=== PATIENT | female | born 1960 | race Caucasian/White ===

== ENCOUNTER 2018-10-02 11:49 | Outpatient (CLI) | payer OTHER, SELFPAY ==
[2018-10-02 12:15] LABS: Mono Screening Negative (Negative)
== END 2018-10-02 12:09 ==
PROVIDERS: PCP General Practice; Visit Provider General Practice
DX: J02.9 Acute pharyngitis, unspecified (principal)
CPT/HCPCS: 36415; 86308

== ENCOUNTER 2018-10-02 11:51 | Outpatient (REF) | payer OTHER, SELFPAY | END 2018-10-02 12:11 | LOC: LBN 11:51 | PROVIDERS: PCP General Practice; Visit Provider General Practice | DX: J02.9 Acute pharyngitis, unspecified (principal) | CPT/HCPCS: 87081 ==

== ENCOUNTER 2018-10-24 15:40 | Outpatient (REF) | payer OTHER, SELFPAY ==
--- NOTE | 2018-10-24 15:00 | PAPFT_PTH ---
PATIENT: Racquel Lares LOC: [facility] U#:[id number] AGE/SX: 57/F ROOM: RE10/24/[address]: Tesha Rossi NP : 1960 BED: DIS: 10/24/2018 SPEC #: [id number] RECD: 10/24/18 17:48 STATUS: MERARI FRAGA #: [id number] VICKY: 10/24/18 15:[address]: Tesha Rossi NP DEPT: [facility] Cytology RECD BY: Arnaud,Racquel ENTERED: 10/24/18 17:48 SP TYPE: PAPFT OTHR DR: Odilon Russ Tissues: 1 - CX/ENDOCX FOR PAP SMEARS Procedures: PAP THIN PREP/UVM Screening HPV DNA PROBE Comments: [id number]
[2018-10-24 16:05] LABS: Bilirubin Negative (Negative); Blood Trace-intact (Negative); Clarity Clear (Clear); Glucose Negative (Negative); Ketones Negative (Negative); Leukocyte Esterase Trace (Negative); Nitrite Negative (Negative); Specific Gravity 1.015 (1.005-1.025); Urobilinogen 0.2 EU/dL (Up TO 0.2)
[2018-10-24 16:27] LABS: Epithelial Cells Moderate HPF (Negative); RBC 0-2 (0-2)
[2018-10-24 16:28] LABS: Bacteria Rare HPF (Negative); C & S Indicated? C&S Done As Ordered; Crystals Negative HPF (Negative); Mucus Negative (Negative)
== END 2018-10-24 16:00 ==
LOC: LBN 15:40
PROVIDERS: PCP General Practice; Visit Provider Nurse Practitioner Women's Health
DX: R30.0 Dysuria (principal); N89.8 Other specified noninflammatory disorders of vagina; Z12.4 Encounter for screening for malignant neoplasm of cervix; Z11.51 Encounter for screening for human papillomavirus (HPV)
CPT/HCPCS: 87077; 88142; 81003; 81015; 87086; 87186; 87624

== ENCOUNTER 2018-11-12 16:37 | Outpatient (REF) | payer OTHER, SELFPAY ==
--- NOTE | 2018-11-12 16:05 | ENDO_PTH ---
PATIENT: Racquel Lares LOC: [facility] U#:[id number] AGE/SX: 57/F ROOM: RE11/12/[address]: Maxwell Mora MD : 1960 BED: DIS: 11/12/2018 SPEC #: [id number] RECD: 11/12/18 17:13 STATUS: MERARI REQ #: [id number] VICKY: 11/12/18 16:[address]: Maxwell Mora DEPT: Surgical Specimen RECD BY: Racquel Lares ENTERED: 11/12/18 17:13 SP TYPE: Endo OTHR DR: Odilon Russ NP Tissues: 1 - ENDOCERVICAL BX/CURRETTE Procedures: GROSS AND MICRO LEVEL 4 Comments: [id number] (INSUFFIENT SAMPLE - CREDITED PER [facility])
== END 2018-11-12 16:57 ==
LOC: LBN 16:37
PROVIDERS: PCP General Practice; Visit Provider Obstetrics & Gynecology
DX: R87.612 Low grade squamous intraepithelial lesion on cytologic smear of cervix (LGSIL) (principal); R87.820 Cervical low risk human papillomavirus (HPV) DNA test positive; Z78.0 Asymptomatic menopausal state
CPT/HCPCS: 88305

== ENCOUNTER 2018-11-27 15:02 | Outpatient (REF) | payer OTHER, SELFPAY ==
--- NOTE | 2018-11-27 14:40 | ENDO_PTH ---
PATIENT: Racquel Lares LOC: [facility] U#:[id number] AGE/SX: 57/F ROOM: RE11/27/[address]: Maxwell Mora MD : 1960 BED: DIS: 11/27/2018 SPEC #: [id number] RECD: 11/27/18 17:28 STATUS: MERARI REQ #: [id number] VICKY: 11/27/18 14:[address]: Maxwell Mora DEPT: Surgical Specimen RECD BY: Racquel Lares ENTERED: 11/27/18 17:29 SP TYPE: Endo OTHR DR: Odilon Russ Tissues: 1 - ENDOCERVICAL BX/CURRETTE Procedures: GROSS AND MICRO LEVEL 4 Comments: [id number]
== END 2018-11-27 15:22 ==
LOC: LBN 15:02
PROVIDERS: PCP General Practice; Visit Provider Obstetrics & Gynecology
DX: R87.612 Low grade squamous intraepithelial lesion on cytologic smear of cervix (LGSIL) (principal)
CPT/HCPCS: 88305

== ENCOUNTER 2019-01-09 09:05 | Outpatient (CLI) | payer OTHER, SELFPAY ==
--- NOTE | 2019-01-09 16:15 | DI.MAMMO_ITS ---
SYMPTOM/DIAGNOSIS: SCREENING Z12.31 MAMMOGRAM: 01/09 Mammograms were interpreted according to the usual protocol including computer analysis with CAD system, tomosynthesis and C view imaging. The breasts are heterogeneously dense. No dominant mass or clumped microcalcification is identified in either breast. The current examination is compared with previous examinations including Jun 2017 and there is question of increased radiodensity with a vaguely nodular appearance in the upper outer quadrant of the left breast seen on MLO and CC views. Additional mammographic views of this area requested to rule out a mass. No other change seen. CONCLUSION: Additional mammographic views of the left breast requested as described above. Category 0, breast density category C. MQSA ASSESSMENT OF FINDINGS: Incomplete: Needs additional imaging evaluation. Category 0. Patient will receive a letter notifying them of these results. Bi-RADS category C. The breasts are heterogeneously dense, which may obscure small masses.
== END 2019-01-09 09:25 ==
PROVIDERS: PCP General Practice; Visit Provider Obstetrics & Gynecology
DX: Z12.31 Encounter for screening mammogram for malignant neoplasm of breast (principal); R92.8 Other abnormal and inconclusive findings on diagnostic imaging of breast
CPT/HCPCS: 77063; 77067

== ENCOUNTER 2019-01-15 00:50 | Outpatient (CLI) | payer OTHER, SELFPAY ==
--- NOTE | 2019-01-15 10:49 | DI.MAMMO_ITS ---
EXAM: US BREAST LT LIMITED CLINICAL HISTORY: F/U MAMMO ?INCREASED RADIODENSITY WITH A VAGUELY NODULAR APPEARANCE IN THE. TECHNIQUE: Ultrasound performed using standard protocol. COMPARISON: No exams were available for comparison FINDINGS: Ultrasound was performed to evaluate area of asymmetric radiodensity seen on recent mammogram in the left breast. No mass or cyst identified. Additional mammographic views left breast were obtained to evaluate a questionable area of asymmetric density seen on recent mammogram. Additional views fail to show a discrete mass. IMPRESSION: Negative left breast ultrasound. No specific evidence of malignancy at this time. Follow up unilateral left breast mammogram recommend ed in 6 months. Category 3. Breast density, Category C.
== END 2019-01-15 01:10 ==
PROVIDERS: PCP General Practice; Visit Provider Obstetrics & Gynecology
DX: Z12.31 Encounter for screening mammogram for malignant neoplasm of breast (principal); R92.8 Other abnormal and inconclusive findings on diagnostic imaging of breast; N64.59 Other signs and symptoms in breast
CPT/HCPCS: 76642; 77063; 77067

== ENCOUNTER 2019-07-03 01:25 | Outpatient (CLI) | payer OTHER, SELFPAY ==
--- NOTE | 2019-07-03 15:07 | DI.MAMMO_ITS ---
EXAM: MG MAMMO DIAGNOSTIC UNI CLINICAL HISTORY: 6 MO F/U, F/U ABNL LT BREAST,R92.8 COMPARISON: Priors available for comparison. TECHNIQUE: Craniocaudal and mediolateral oblique Full Field Digital Mammography views of the left b reast with Computer Aided Diagnosis. FINDINGS: Mammography/Tomosynthesis: Masses/Architectural Distortion: None seen. Microcalcifictions: No suspicious pleomorphic-type are seen. Skin Thickening/Nipple Retraction: None. IMPRESSION: 1. No evidence of malignancy is noted. 2. Unless there is more urgent need, patient should resume screening mammography in 6 months, as per [place] [employer] guidelines. ACR BI-RAD Category- 1 Negative Breast Density - Category C - Heterogeneously dense The mammogram demonstrates the patient's breast tissue is dense. Dense breast tissue is very common a nd is not abnormal but dense breast tissue can make it harder to find cancer on a mammogram. Also, de nse breast tissue may increase their breast cancer risk. This information about the result of the [facility] mogram report was provided to the patient to raise their awareness. Use this report when you speak wi th the patient about their risks for breast cancer, which includes their family history. At that time , you may recommend for more screening tests (Ultrasound or MRI) as they might be useful based on the ir risk. A negative radiographic report should not delay biopsy if a dominant or clinically suspicious mass is present. Up to ten percent of cancers are not identified on mammography. A negative report may reinforce clinical impression. Adenosis and dense breasts may obscure an underlying neoplasm. False positive reports average 6 to 10%. Patient will receive a letter notifying them of these results.
== END 2019-07-03 01:45 ==
PROVIDERS: PCP General Practice; Visit Provider Obstetrics & Gynecology
DX: Z12.31 Encounter for screening mammogram for malignant neoplasm of breast (principal); R92.8 Other abnormal and inconclusive findings on diagnostic imaging of breast; N64.59 Other signs and symptoms in breast
CPT/HCPCS: 77061; 77065; G0279

== ENCOUNTER 2020-01-13 01:17 | Outpatient (CLI) | payer OTHER, SELFPAY ==
--- NOTE | 2020-01-13 07:45 | DI.MAMMO_ITS ---
EXAM: MAMMO SCREENING CLINICAL HISTORY: screening.Z12.39 TECHNIQUE: Mammograms were interpreted according to the usual protocol including computer analysis w [employer] CAD system, tomosynthesis and C-view imaging. COMPARISON: FINDINGS: The breasts are heterogeneously dense. No dominant mass or clumped microcalcification is identified in either breast. The current examination is compared with previous examinations including June and there is question of interval increase in prominence of a focal area of asymmetric density proj ected posteriorly and centrally in the left breast on MLO view. Additional mammographic views of thi s area are requested to include an MLO spot compression view of the left breast. No other significan t change seen. IMPRESSION: Additional mammographic views of the left breast requested as described above. Breast ultrasound may be indicated as well depending on the results of the additional mammographic views. BI-RADS Cat 0 - Assessment Incomplete: Need additional imaging evaluation Breast Density - Category C - Heterogeneously dense
== END 2020-01-13 01:37 ==
PROVIDERS: PCP General Practice; Visit Provider Obstetrics & Gynecology
DX: Z12.31 Encounter for screening mammogram for malignant neoplasm of breast (principal); R92.2 Inconclusive mammogram
CPT/HCPCS: 77063; 77067

== ENCOUNTER 2020-01-16 01:25 | Outpatient (CLI) | payer OTHER, SELFPAY ==
--- NOTE | 2020-01-16 14:15 | DI.US_ITS ---
EXAM: MG MAMMO SCREEN CALL BACK UNI CLINICAL HISTORY: F/U MAMMO, ? INCREASE IN ASYMMETRIC DENSITY ON MLO VIEW TECHNIQUE: Mammograms were interpreted according to the usual protocol including computer analysis w [employer] CAD system, tomosynthesis and C-view imaging. COMPARISON: FINDINGS: Additional mammographic views of the left breast and left breast ultrasound are interpreted in conjun ction. These examinations were obtained to evaluate questionable area of asymmetric density seen on MLO view of recent mammogram. Additional mammographic views fail to show a discrete mass. Breast ul trasound shows no evidence of mass or cyst. IMPRESSION: No specific evidence of malignancy at this time. Follow-up unilateral left breast mammogram recommen ded in 6 months. BI-RADS Cat 3 - 6 month - Probably Benign Finding: Recommend follow-up mammography in 6 months Breast Density - Category C - Heterogeneously dense
--- NOTE | 2020-01-16 14:35 | DI.MAMMO_ITS ---
EXAM: MG MAMMO SCREEN CALL BACK UNI CLINICAL HISTORY: F/U MAMMO, ? INCREASE IN ASYMMETRIC DENSITY ON MLO VIEW TECHNIQUE: Mammograms were interpreted according to the usual protocol including computer analysis w [employer] CAD system, tomosynthesis and C-view imaging. COMPARISON: FINDINGS: Additional mammographic views of the left breast and left breast ultrasound are interpreted in conjun ction. These examinations were obtained to evaluate questionable area of asymmetric density seen on MLO view of recent mammogram. Additional mammographic views fail to show a discrete mass. Breast ul trasound shows no evidence of mass or cyst. IMPRESSION: No specific evidence of malignancy at this time. Follow-up unilateral left breast mammogram recommen ded in 6 months. BI-RADS Cat 3 - 6 month - Probably Benign Finding: Recommend follow-up mammography in 6 months Breast Density - Category C - Heterogeneously dense
== END 2020-01-16 01:45 ==
PROVIDERS: PCP General Practice; Visit Provider Obstetrics & Gynecology
DX: Z12.39 Encounter for other screening for malignant neoplasm of breast (principal); R92.8 Other abnormal and inconclusive findings on diagnostic imaging of breast; R92.2 Inconclusive mammogram
CPT/HCPCS: 76642; 77063; 77067

== ENCOUNTER 2020-05-14 10:15 | Outpatient (REF) | payer OTHER, SELFPAY ==
--- NOTE | 2020-05-14 09:30 | PAPFT_PTH ---
PATIENT: Racquel Lares LOC: [facility] U#:[id number] AGE/SX: 59/F ROOM: RE05/14/[address]: YONI Cavazos : 1960 BED: DIS: 05/14/2020 SPEC #: [id number] RECD: 05/14/20 12:48 STATUS: MERARI REQ #: [id number] VICKY: 05/14/20 09:[address]: Serene Veloz DEPT: [facility] Cytology RECD BY: Arnaud,Racquel ENTERED: 05/14/20 12:49 SP TYPE: PAPFT OTHR DR: Odilon Russ Tissues: 1 - CX/ENDOCX FOR PAP SMEARS Procedures: PAP THIN PREP/UVM Screening HPV DNA PROBE Comments: [id number]
== END 2020-05-14 10:35 ==
LOC: LBN 10:15
PROVIDERS: PCP General Practice; Visit Provider Nurse Practitioner Family
DX: Z12.4 Encounter for screening for malignant neoplasm of cervix (principal); Z11.51 Encounter for screening for human papillomavirus (HPV); R87.810 Cervical high risk human papillomavirus (HPV) DNA test positive
CPT/HCPCS: 88142; 87624

== ENCOUNTER 2020-06-18 10:40 | Outpatient (REF) | payer OTHER, SELFPAY ==
--- NOTE | 2020-06-18 10:15 | CER_PTH ---
PATIENT: Racquel Lares LOC: [facility] U#:[id number] AGE/SX: 59/F ROOM: RE06/18/[address]: Rachele Taylor DO : 1960 BED: DIS: 06/18/2020 SPEC #: [id number] RECD: 06/18/20 13:02 STATUS: MERARI REQ #: [id number] VICKY: 06/18/20 10:[address]: Rachele Taylor DEPT: Surgical Specimen RECD BY: Racquel Lares ENTERED: 06/18/20 13:03 SP TYPE: CER OTHR DR: Odilon Russ Tissues: 1 - CERVICAL BIOPSY 2 - ENDOCERVICAL BX/CURRETTE Procedures: GROSS AND MICRO LEVEL 4 Comments: [id number]
== END 2020-06-18 10:41 | disposition home or self-care (01) ==
LOC: LBN 10:40
PROVIDERS: PCP General Practice; Visit Provider Obstetrics & Gynecology
DX: N87.9 Dysplasia of cervix uteri, unspecified (principal); R87.810 Cervical high risk human papillomavirus (HPV) DNA test positive
CPT/HCPCS: 88305

== ENCOUNTER 2020-07-16 00:59 | Outpatient (CLI) | payer OTHER, SELFPAY ==
--- NOTE | 2020-07-16 08:15 | DI.MAMMO_ITS ---
EXAM: MG MAMMO DIAGNOSTIC UNI CLINICAL HISTORY: F/U ABNL MAMMO, 6 MONTH F/U,R92.8. TECHNIQUE: Unilateral left CC and MLO views were performed + MLO 3D spot mammographic images were ob tained with 3D Tomosynthesistechnique and utilizing computer aided detection (CAD). COMPARISON: Prior mammograms dating back to 2017, the most recent being December 2019. Breast ultr asound December 2019 was apparently negative. FINDINGS: No new masses. Asymmetric density previously described left breast compresses out well with addition al spot compression 3D views. No malignant-appearing microcalcification groups in this region or els ewhere in the left breast. No new architectural distortion or skin thickening-traction. IMPRESSION: No radiographic evidence of malignancy in left breast Appropriate follow-up is to keep this patient yearly mammogram schedule, this implying that her next bilateral mammogram would be in December 2020. BI-RADS Category 2 - Benign Findings Breast Density - Category C - Heterogeneously dense Breast density Category C or D implies that the patient has dense breast tissue. Dense breast tissue can make it harder to find cancer on a mammogram. Dense breast tissue is also associated with an incr eased risk of breast cancer. This information about the result of the mammogram report was provided to the patient to raise their awareness. Use this report when you speak with the patient about their risks for breast cancer, which includes their family history. At that time, you may recommend additional screening tests (Ultrasoun d or MRI) as these tests may add significant information. A negative radiographic report should not delay biopsy if a dominant or clinically suspicious mass is present. Up to ten percent of cancers are not identified on mammography. A negative report may reinforce clinical impression. Adenosis and dense breasts may obscure an underlying neoplasm. False positive reports average 6 to 10%. Patient will receive a letter notifying them of these results.
== END 2020-07-16 01:19 ==
PROVIDERS: PCP General Practice; Visit Provider Obstetrics & Gynecology
DX: R92.8 Other abnormal and inconclusive findings on diagnostic imaging of breast (principal)
CPT/HCPCS: 77061; 77065; G0279

== ENCOUNTER 2021-07-05 12:34 | Outpatient (REF) | payer SELFPAY ==
[2021-07-05 15:54] LABS: Source Nasal/Nares
[2021-07-05 21:54] LABS: COVID-19 PCR Negative (Negative)
== END 2021-07-05 12:35 | disposition home or self-care (01) ==
LOC: LBO 12:34
PROVIDERS: PCP General Practice; Visit Provider Family Medicine
DX: Z20.822 Contact with and (suspected) exposure to COVID-19 (principal)
CPT/HCPCS: 87635

== ENCOUNTER 2021-10-21 11:14 | Outpatient (REF) | payer OTHER, SELFPAY | END 2021-10-21 11:15 | disposition home or self-care (01) | LOC: LBN 11:14 | PROVIDERS: PCP Student in an Organized Health Care Education/Training Program; Visit Provider Student in an Organized Health Care Education/Training Program | DX: R31.9 Hematuria, unspecified (principal); R82.998 Other abnormal findings in urine | CPT/HCPCS: 87077; 87086; 87186 ==

== ENCOUNTER 2021-10-28 10:15 | Outpatient (REF) | payer OTHER, SELFPAY | END 2021-10-28 10:16 | disposition home or self-care (01) | LOC: LBN 10:15 | PROVIDERS: PCP Student in an Organized Health Care Education/Training Program; Visit Provider Nurse Practitioner | DX: N39.0 Urinary tract infection, site not specified (principal) | CPT/HCPCS: 87086 ==

== ENCOUNTER → 2021-11-15 19:40 | Outpatient (CLI) | payer OTHER, SELFPAY ==
--- NOTE | 2021-11-15 11:00 | DI.RAD_ITS ---
Exam(s) XR FINGER LT MIDDLE EXAM: XR FINGER LT MIDDLE CLINICAL HISTORY: evaluate nodular lesion, growing bump, scar condition fibross-L90.5. TECHNIQUE: 2D digital imaging was performed. Three views. COMPARISON: None. FINDINGS: BONES: No acute fracture is present. No bony destructive lesion is seen. JOINTS: No dislocation present. Minimal degenerative changes of the interphalangeal joints. Degener ative changes at the 1st carpal metacarpal joint. SOFT TISSUE: Normal. No calcification or foreign body. No visible mass. IMPRESSION: Mild degenerative changes. No visible mass or bony erosion. DATA REPOSITORY: RADIATION DOSE DELIVERED:
--- OUTSIDE RECORDS SUMMARY | 2021-11-15 19:42 | XMS_ITS | Encounter Summary ---
:1960 Author Organization [facility] Address [address] [place] [address] Care Team Providers Name Role Phone None, Provider Primary Care Provider Unavailable Encounter Details Date Type Department Care Team Description 10/24/2018 Results Only [facility]- Chandrakant Jimenez, VISCOSITY TESTER [phone] [facility] [place] [address] Social History Tobacco Use Types Packs/Day Years Used Date Never Smoker Alcohol Use Standard Drinks/Week Comments Yes 0 (1 standard drink = 0.6 oz pure alcoho l) VERY RARELY Alcohol Habits Answer Date Recorded How often do you have a drink containing alcohol? Not asked How many drinks containing alcohol do you have on a typical Not asked day when you are drinking? How often do you have six or more drinks on one occasion? No t asked Comment: VERY RARELY 09/09/2010 Sex Assigned at Date Recorded Not on file documented as of this encounter Plan of Treatment Not on filedocumented as of this encounter Procedures Procedure Name Priority Date/Time Associated Diagnosis Comme nts PAP TEST- RESULT Routine 10/24/2018 0:00 EDT Resu lts for this ONLY procedure are i n the results section. documented in this encounter Results PAP TEST- RESULT ONLY (10/24/2018 0:00 EDT) Pathology Report: CYTOPATHOLOGY REPORT [facility] Reports generated via electronic interface contain carmelita ginal data; SERVICES however they are lacking the format of the original re port. Caution should be taken when reading/interpreting unfo rmatted reports. Name: ? WALTER OZUNA ? Accession #: ? [id number] ? : ? 1960 (Age: 57 ) ??F ?Collect Date: ? 10/24/2018 ? Location: ? [facility] ? Receive Date: ? 10/26/19 19 ? Provider: CHANDRAKANT MENDOZA VISCOSITY TESTER Copy to: LILIAN PINEDA MD ? Final Report SPECIMEN ADEQUACY ? Satisfactory for Evaluation - transformation zone component present GENERAL CATEGORIZATION ? Epithelial Cell Abnormality INTERPRETATION ? Squamous Cell Abnormality - Low grade squamous intraepithelial lesion (LSIL). EDUCATIONAL NOTES/RECOMMENDATIONS ? [facility] recommends foll owing ASCCP's 2012 Updated Consensus Guidelines for the Management of Abnormal Cervical Cancer Screening T ests and Cancer Precursors (JLGTD, 2013; 17(5):S1-S27). ??Conse nsus guidelines are available online at www.asccp.org. Menstrual/ Status: ??Post Menopausal Infection History: Pos for HPV: 2018 Specimen/Source: ??Pap Test, Cervix, ThinPrep Imaging System with manual evaluation Document reviewed and electronically signed by: ? NAYA ARORA MD ? Report ??Date: 10/31/2018 16:51 HPV with Pap Test ? Date Ordered: ? 10/31/2018 ? Status: ?? S igned Out ?Date Complete: ? 11/05/2018 ? By: ??Sys tem Interface ? Date Reported: ? 11/05/2018 ? Interpretation RESULT: POSITIVE FOR HIGH OR INTERMEDIATE RISK HPV. E6 OR E7 mRNA from one or more types of HPV types 16,1 8,31, 33,35,39,45,51,52,56,58,59,66, and 68 is detected by dry wall installations mechanic mediated amplification. High and intermediate risk HPV types are associated wi th most squamous intraepithelial lesions and cervical can cers. Comments Document reviewed and electronically signed by: ? System Interface ? Report date: 11/05/2018 By the signature above, the attending physician certif ies that he/she has personally conducted a gross and/or microscopic examin ation of the described specimens and rendered or confirmed the above diagnosi s. End of Report Specimen Performing Organization Address City/State/ZIP Code Phon e Number [facility] [address] [place] [address] SERVICES documented in this encounter Visit Diagnoses Not on filedocumented in this encounter Care Teams Elevating Grader Operator Relationship Specialty Start Date End Date None, Provider PCP - General 08/25/10 06/17/20 documented as of this encounter
--- OUTSIDE RECORDS SUMMARY | 2021-11-15 19:42 | XMS_ITS | Encounter Summary ---
:1960 Author Organization [facility] Address [address] [place] [address] Care Team Providers Name Role Phone Unavailable Primary Care Provider Unavailable Encounter Details Date Type Department Care Team Description 02/19/2001 Results Only [facility] - Berenice Mayer MD conversion [address] [facility] [address] [place], [place] [id number] [place] [address] [id number] [phone] Social History Tobacco Use Types Packs/Day Years Used Date Never Assessed Sex Assigned at Date Recorded Not on file documented as of this encounter Plan of Treatment Not on filedocumented as of this encounter Procedures Procedure Name Priority Date/Time Associated Diagnosis Comme [facility] SURGICAL PATHOLOGY Routine 02/19/2001 0:00 EDT Re sults for this procedure are i n the results section. documented in this encounter Results SURGICAL PATHOLOGY (02/19/2001 0:00 EDT) Pathology Report: SURGICAL PATHOLOGY REPORT [facility] Reports generated via electronic interface contain carmelita ginal data; LAB however they are lacking the format of the original re port. Caution should be taken when reading/interpreting unfo rmatted reports. Name: ? WALTER OZUNA ? Accession #: ? [id number] ? : ? 1960 (Age: 40) ??F ? Collect Date: ? 02/19/2001 ? Location: ? [facility] ? Receive Date: ? 001 ? Provider: BERENICE MARK MD Copy to: ALE PINEDA MD ? Final Pathologic Diagnosis: A. ?Tonsil, right, tonsillectomy: 1. ?Focal acute tonsillitis. 2. ?Reactive lymphoid hyperplasia. B. ?Tonsil, left, tonsillectomy: 1. ?Reactive lymphoid hyperplasia. Document reviewed and electronically signed by: Amalia Colon MD Report ??Date: 02/21/2001 18:31 By the signature above, the attending physician certif ies that he/she has personally conducted a gross and/or microscopic examin ation of the described specimens and rendered or confirmed the above diagnosi s. Specimen(s) Received: A. ?Right tonsil (#1) B. ?Left tonsil (#2) Clinical History: ? Chronic tonsillitis Gross Description: ? Received in formalin labelled Co llins and 1 ??Rt tonsil is an ovoid portion of soft tissue which is sun-pink and focally hyperemic and measures 2.7 x 1.3 x 1.2 cm. ??One medical sales representative section is submit adrian as (A). Received in formalin labelled Ozuna and 2- Left tonsil is an ovoid portion of sun-pink, focally hyperemic soft tiss ue which measures 2.5 x 1.9 x 1.2 cm. ??One medical sales representative section is submitte d as (B). ??(E. Jaime)/[facility] End of Report Specimen Performing Organization Address City/State/ZIP Code Phon e Number [facility] [address] [place] [address] SERVICES [facility] [address] [place] [address] documented in this encounter Visit Diagnoses Not on filedocumented in this encounter
--- OUTSIDE RECORDS SUMMARY | 2021-11-15 19:42 | XMS_ITS | Encounter Summary ---
:1960 Author Organization [facility] Address [address] [place] [address] Care Team Providers Name Role Phone None, Provider Primary Care Provider Unavailable Encounter Details Date Type Department Care Team Description 09/25/2013 Results Only [facility]- [facility]ISM Tash Johnson MD [phone] [address] [place] [address] Social History Tobacco Use Types Packs/Day Years [...] Procedure Name Priority Date/Time Associated Diagnosis Comme [facility] SURGICAL PATHOLOGY Routine 09/25/2013 9:29 EDT Re sults for this procedure are i n the results section. documented in this encounter Results SURGICAL PATHOLOGY (09/25/2013 9:29 EDT) Pathology SURGICAL PATHOLOGY REPORT [facility] Report: Reports generated via electronic interface contain carmelita ginal data; LAB however they are lacking the format of the original re port. Caution should be taken when reading/interpreting unfo rmatted reports. Name: ? WALTER OZUNA ? Accession #: ? [id number] ? : ? 1960 (Age: 52) ??F ? Collect Date: ? 09/25/2013 ? Location: ? [facility] ? Receive Date: ? 014 ? Provider: TASH JOHNSON MD Copy to: LILIAN PINEDA MD ? Final Pathologic Diagnosis: SKIN OF HAND, RIGHT DORSAL, PUNCH BIOPSY: - Lichenoid dermatitis. ??See comment. Comment: The biopsy consists of lichenoid dermatitis with epide rmal hyperplasia and hyperkeratosis. ??The biopsy has many features of lichen planus. ??On some of the deeper sections, however, there is a focus of parakera tosis. ??Therefore, a lichenoid keratosis would be included in the different ial diagnosis. Correlation with the clinical history and examination is recommended. ??(Dr. Lindsay)/sam Microscopic Description: Sections consist of a small punch biopsy of skin to the mid reticular dermis. There is compact orthohyperkeratosis with, on deeper s ections, focal parakeratosis. ??The epiderm is is acanthotic with tapered rete ridges. ??At the edge of the biopsy, there is a lichenoid inflammatory infiltrate that partially obscures the dermal-epiderma l junction. ??Along the basal zone, there is vacuolar change with individual necrotic and dyskeratotic kerat inocytes. ??The upper levels of the epidermis consist of cells with glassy c ytoplasm and mildly reactive nuclei. ??There is wedge-shaped hypergranulosis. ??The deeper dermis has elastosis. ??(Dr. Lindsay)/sam Document reviewed and electronically signed by: NANDINI LINDSAY MD Report ??Date: 10/01/2013 15:47 By the signature above, the attending physician certif ies that he/she has personally conducted a gross and/or microscopic examin ation of the described specimens and rendered or confirmed the above diagnosi s. Specimen(s) Received: Right dorsal hand Clinical History: Plaques over hand dermis and feet; punch biopsy of rash for diagnostic purposes ? Gross Description: ? Received in formalin labelled with proper patient identification (initials C, L) and right dorsal hand is a punch biopsy of sun -white skin (0.3 cm in diameter and 0.1 cm in thickness). Submitted intact in 1. Katie Huber 09/26/2013 10:15 AM End of Report Specimen Performing Organization Address City/State/ZIP Code Phon e Number [facility] [address] [place] [address] SERVICES [facility] [address] [place] [address] documented in this encounter Visit Diagnoses Not on filedocumented in this encounter Care Teams Curtain Inspector Relationship Specialty Start Date End Date None, Provider PCP - General 08/25/10 06/17/20 documented as of this encounter
--- OUTSIDE RECORDS SUMMARY | 2021-11-15 19:42 | XMS_ITS | Encounter Summary ---
:1960 Author Organization [facility] Address [address] [place] [address] Care Team Providers Name Role Phone None, Provider Primary Care Provider Unavailable Encounter Details Date Type Department Care Team Description 11/27/2018 Results Only [facility] Herrera Luna MD [phone] [address] [place] [address] Social History Tobacco Use Types Packs/Day Years [...] Name Priority Date/Time Associated Diagnosis Comme nts SURGICAL PATHOLOGY Routine 11/27/2018 23:35 Resul ts for this EDT procedure are i n the results section. documented in this encounter Results SURGICAL PATHOLOGY (11/27/2018 23:35 EDT) Pathology Report: SURGICAL PATHOLOGY REPORT [facility] Reports generated via electronic interface conta in original data; [facility]ENTER [facility] however they are lacking the format of the original re port. SERVICES Caution should be taken when reading/interpreting unfo rmatted reports. Name: ? WALTER OZUNA ? Accession #: ? [id number] ? : ? 1960 (Age: 57 ) ??F ? Collect Date: ? 11/27/2018 ? Location: ? [facility] ? Receive Date: ? 11/28/19 19 ? Provider: HERRERA LUNA MD Copy to: LILIAN PINEDA MD ? Final Pathologic Diagnosis: ENDOCERVIX, CURETTAGE: - Rare benign endocervical cells; insufficient for fur ther diagnosis. See comment. 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 (Dr. Corrales)/jds Document reviewed and electronically signed by: ANALY KESSLER MD Report ??Date: 11/29/2018 16:07 By the signature above, the attending physician certif ies that he/she has personally conducted a gross and/or microscopic examin ation of the described specimens and rendered or confirmed the above diagnosi s. Specimen(s) Received: ECC Clinical History: LSIL Gross Description: ? Received in formalin labelled with proper patient identification (initials C, L) and endocervical curettage is an aggregate of clear viscous material (0.1 x 0.1 x 0.1 cm). Submitted entirely in 1. Anushka Johnson 11/28/2018 8:27 AM End of Report Specimen Performing Organization Address City/State/ZIP Code Phon e Number [facility] [address] [place] [phone] SERVICES documented in this encounter Visit Diagnoses Not on filedocumented in this encounter Care Teams Geriatric Aide Relationship Specialty Start Date End Date None, Provider PCP - General 08/25/10 06/17/20 documented as of this encounter
--- OUTSIDE RECORDS SUMMARY | 2021-11-15 19:42 | XMS_ITS | Encounter Summary ---
:1960 Author Organization [facility] Address [address] [place] [address] Care Team Providers Name Role Phone None, Provider Primary Care Provider Unavailable Encounter Details Date Type Department Care Team Description 09/09/2010 Results Only [facility] Paula Goldberg PA-C [facility] [id number] [place] [address], [place] [address] (Wo rk) Social History Tobacco Use Types Packs/Day Years [...] Associated Diagnosis Comme nts SURGICAL PATHOLOGY Routine 09/09/2010 0:00 EDT Re sults for this procedure are i n the results section. documented in this encounter Results SURGICAL PATHOLOGY (09/09/2010 0:00 EDT) Pathology SURGICAL PATHOLOGY REPORT ? [facility] Report: Reports generated via electr onic interface contain original data; ? LAB however they are lacking the format of the original report. ? Caution should be taken when reading/interpreting unformatted reports. ? Name: ? WALTER OZUNA ? Accession #: ? [id number] ? : ? 1960 (Age: 49) ??F ? Collec t Date: ? 09/09/2010 ? Location: ? [facility] ? R eceive Date: ? 09/09/2010 ? Provider: MALIKA A WARD PA ? Copy to: ? Final Pathologic Diagnosis: ? Skin of sheldon, right, punch biopsy: ? - Lichenoid interface dermat itis. ?? See microscopic and comment. ? Comment: ? 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 The patient's prior biopsy ([id number]) has been reviewed in ? conjunction with the current specimen, and both show similar features. This case was shown in intradepartment al consultation. ??(Dr. Turner)/[facility] ? Microscopic Description: ? There is compact orth ohyperkeratosis with focal parakeratosis. ??The ? epidermis varies in thicknes s and the rete ridges are tapered. ??There is a ? band-like infiltrate that pa rtially obscures the dermal-epidermal junction. ??The infiltrate is composed prima rily of lymphomononuclear cells with scattered ? melanophages. ??There is vac uolar change along the basal zone with clusters of ?? necrotic keratinocytes (Civa tte bodies). ??The keratinocytes have abundant glassy cytoplasm. ??There is wedge- shaped hypergranulosis. Deeper levels have been ? examined. (Dr. Turner)/[facility] ? Document reviewed and electr onically signed by: ? KYLER TURNER MD ? Report ??Date: 09/14/2010 18 :16 ? By the signature above, the attending physician certifies that he/she has ? personally conducted a gross and/or microscopic examination of the described ? specimens and rendered or co nfirmed the above diagnosis. ? Specimen(s) Received: ? Right sheldon ? Clinical History: ? Persistent cluster of pink pruritic nodules-previous bx 2006 ([facility] read): ?? DDX: LP vs sarcoid vs Majocc hi's vs MF (less likely GA); Clinical diagnosis ? code: 782.2 ? Gross Description: ? Received in formalin labelled Walter Ozuna and sheldon is an ovoid punch biopsy of white skin m easuring 0.4 x 0.3 cm in diameter and 0.5 cm in ? thickness. ??The specimen is submitted intact in a single cassette. ? (Yamile Umana)/mpl ? End of Report ? Specimen Performing Organization Address City/State/ZIP Code Phon e Number [facility] [address] [place] [address] SERVICES [facility] [address] [place] [address] documented in this encounter Visit Diagnoses Not on filedocumented in this encounter Care Teams Training Developer Relationship Specialty Start Date End Date None, Provider PCP - General 08/25/10 06/17/20 documented as of this encounter
--- OUTSIDE RECORDS SUMMARY | 2021-11-15 19:42 | XMS_ITS | Encounter Summary ---
:1960 Author Organization [facility] Address [address] [place] [address] Care Team Providers Name Role Phone Odilon Russ MD Primary Care Provider Encounter Details Date Type Department Care Team Description 06/18/2020 Lab Requisition [facility] Rachele Taylor Encounter for other Pathology & [address] [place] [address] general examination Laboratory Medicine [facility] [id number] [place] [address] [place] [address] (Work) [phone] Social History Tobacco Use Types Packs/Day Years [...] Date/Time Associated Diagnosis Comme nts SURGICAL PATHOLOGY Today 06/18/2020 10:15 Encounter for othe r Results for this EST general examination procedur e are in the results section. documented in this encounter Results SURGICAL PATHOLOGY (06/18/2020 10:15 EST) Final Diagnosis A. CERVIX, 12 O'CLOCK, BIOPSY: [facility] MED ICAL - Squamous metaplasia with reactive epithelial changes . [facility] B. ENDOCERVIX, CURETTINGS: SERVICES - Fragments of benign endocervix with squamous metapla kwabena. Attestation By the signature [facility] Electronica lly below, the attending CENTER signed by physician Roel certifies LABORATORY Stas Mays MD on that they have 1) SERVICES 06/19/2020 at 1004 personally conducted a gross and/or microscopic examination of the described specimen(s), and/or personally interpreted the results of laboratory testing of the described specimen(s), and 2) personally rendered or confirmed the above diagnosis. Clinical History +HR HPV [facility] SERVICES Gross Description A. [facility] Received in formalin jacklyn d with proper patient identification (initials C, L) and cervix 12 o'clock is a pink-white tissue measuring 0.5 x 0.3 x 0.2 cm. Submitted intact in A1. [facility] B. SERVICES Received in formalin jacklyn d with proper patient identification (initials C, L) and ECC is a scant amount of clear colorless mucinous material measuring 0.7 x 0.1 x 0.1 cm in aggregate. Submitted entirely in B1. EMILIE LANE(ASCP) 06/18/2020 18:24 Performing Lab [facility] SERVICES Scanned Images [facility] SERVICES Specimen Tissue - Entire endocervix (body structu re) Tissue specimen (specimen) - Entire endo cervix (body structure) Performing Organization Address City/State/ZIP Code Phon e Number [facility] [address] [place] [address] SERVICES documented in this encounter Visit Diagnoses Diagnosis Encounter for other general examination documented in this encounter Care Teams Level Vial Grinder Relationship Specialty Start Date End Date Odilon Russ MD PCP - General 06/18/[address] [place] [address] [address] [place], [place] [id number] documented as of this encounter
--- OUTSIDE RECORDS SUMMARY | 2021-11-15 19:42 | XMS_ITS | Encounter Summary ---
:1960 Author Organization [facility] Address [address] [place] [address] Care Team Providers Name Role Phone Unavailable Primary Care Provider Unavailable Encounter Details Date Type Department Care Team Description 07/09/2008 Before [facility] - Usama Patel MD Converted Visit Maple conversion [address] [facility] (Maple) [address] [place], [place] [address] [place] [address] [phone] Social History Tobacco Use Types Packs/Day Years Used Date Never Assessed Sex Assigned at Date Recorded Not on file documented as of this encounter Plan of Treatment Not on filedocumented as of this encounter Procedures Procedure Name Priority Date/Time Associated Diagnosis Comme [facility] CYTOPATHOLOGY Routine 07/09/2008 0:00 EDT Results for this procedure are i n the results section . documented in this encounter Results CYTOPATHOLOGY (07/09/2008 0:00 EDT) Pathology Report: CYTOPATHOLOGY REPORT ? [facility] ? LAB Reports generated via electr onic interface contain original data; ? however they are lacking the format of the original report. ? Caution should be taken when reading/interpreting unformatted reports. ? Name: ? WALTER OZUNA ? Accession #: ? [id number] ? : ? 1960 (Age: 47) ??F ?Collect Date: ? 07/09/2008 ? Location: ? [facility] ? Receive Date: ? 07/11/2008 ? Provider: ?SOUMYA CHICAS MD ? Copy to: ?LILIAN MENJIVAR MD ? Specimen/Source: ? Pap Test, Vagina/Cervix/Endocervix, ThinPrep Imaging ? System with manual evaluatio n ? Last Menstrual Period: ? 02/24/09 ? Previous Gynecologic Patholo gy: ? ASC-US: H/o 04 HPV negative ? SPECIMEN ADEQUACY ? Satisfactory for Eval uation ? - transformation zone compon ent present ? GENERAL CATEGORIZATION ? Negative for Intraepi thelial Lesion or Malignancy ? Document reviewed and electr onically signed by: ? Akin Stumler, CT( CP) ? Report Date: ??03/16/ 2009 15:33 ? End of Report ? Specimen Performing Organization Address City/State/ZIP Code Phon e Number [facility] [address] [place] [address] SERVICES [facility] [address] [place] [address] documented in this encounter Visit Diagnoses Not on filedocumented in this encounter
--- OUTSIDE RECORDS SUMMARY | 2021-11-15 19:42 | XMS_ITS | Encounter Summary ---
:1960 Author Organization [facility] Address [address] [place] [address] Care Team Providers Name Role Phone None, Provider Primary Care Provider Unavailable Reason for Visit Reason Comments New Patient Visit RASH ON RIGHT LEG Encounter Details Date Type Department Care Team Description 09/09/[address] [facility] Bee Goldberg Nodu le (Primary Dx); Dermatology - [facility] Xeroderma [id number] [place] [address] [facility] [address] [place] [address] (Wo rk) Social History Tobacco Use Types [...] on file documented as of this encounter Ordered Prescriptions Prescription Sig Dispensed Refills Start Date End Date clobetasol (TEMOVATE) 0.05 Apply topically. 45 g 0 03/2011 % ointment Apply daily to itchy bumps on right leg documented in this encounter Progress Notes Donald Cool - 09/09/2010 2313 EDT DONALD COOL MD Bee Goldberg PA - 09/09/2010 1014 EDT Images from the original note were not included. PROBLEM: RASH SUBJECTIVE: Patient presents today for evaluation of a rash on the right sheldon. Present for: several years Itchy? Yes: (extremely) Painful? No Evaluated by other provider? Yes: was seen by a clip baker years ago and by PCP - punch biopsy [id number] showed lichenoid interface changes (I reviewed the pathology report form 2006) OTC treatments tried: multiple Rx treatments tried: Many creams years ago Aggravating / alleviating factors: No Recent travel? No Other household members with similar rash? No Personal history of similar rash? Yes: ongoing for years - started a small bumps and expanded New medications? No Change in any products (lotions, soaps, laundry products, make-up)? No OBJECTIVE: No apparent distress. Appropriate affect and demeanor. SKIN EXAM: The following areas were examined: upper extremities and lower extremities, oropharynx On the right sheldon there are clustered pink 3-4 mm slightly scaly papulonodules in an almost annular configuration. Skin is overall dry, left leg clear. Feet clear. No Suri's striae seen on buccal mucosae or gingiva. BIOPSY DONE? yes (3.5 mm punch) CULTURE DONE? n/a LOKESH: Not Indicated PUNCH BIOPSY PROCEDURE NOTE PATIENT INFORMATION: Racquel Belle [id number] 1960 DATE OF PROCEDURE: 09/09/2010 SURGEON: EMILIE Chavez GRANITE POLISHER: PROCEDURE NOTE Specimen A Procedure: Punch Biopsy Site: right sheldon Anesthesia: 1% lidocaine with epinephrine 1:100,000 buffered with 8.4% NaHCO3 Prep: Alcohol The lesion was prepped and anesthetized with local anestheisa. The specimen was removed with a 3.5 mm punch trephine. Hemostasis was achieved with pressure. The wound was closed with 4.0 Polypropylene suture. A sterile dressing was applied over petrolatum ointment. Verbal and written wound care instructions were given. The specimen was submitted to pathology for histological evaluation. The indication, risks, benefits and alternatives to this procedure were discussed in detail in with the patient and all questions were answered. Informed consent was obtained in writing. NOTE: Sutures should be removed in about 7 days either here or at primary care office closer to home. ASSESSMENT: 1. Nodules - right sheldon X years - DDX: LP vs sarcoid vs Majocchi's granuloma vs MF (less likely GA) 2. Xeroderma PLAN: 1. Biopsy by punch technique was performed to the lesion on the sheldon as detailed above. We will be in touch with the results when they become available. 2. Clobetasol ointment daily under occlusion until biopsy results become availbale 3. Follow up: will be based on path report 4. Suture removal at work in 7 days. 5. Photo taken with her consent EMILIE Chavez 10:06 09/09/2010 Patient was also seen by Donald Cool MD RIETJose Luis Jackson - 09/09/2010 0950 EDT A complete 12 point review of systems was obtained and reviewed. All systems are negative except for: rash, itching. 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
--- OUTSIDE RECORDS SUMMARY | 2021-11-15 19:42 | XMS_ITS | Encounter Summary ---
:1960 Author Organization [facility] Address [address] [place] [address] Care Team Providers Name Role Phone None, Provider Primary Care Provider Unavailable Encounter Details Date Type Department Care Team Description 11/12/2018 Hospital Encounter [facility]- Vania Unknown, Provider, [facility] [address] [facility] [phone] [place] [address] (Work) [phone] Social History Tobacco Use Types Packs/Day Years [...] on file documented as of this encounter Medications at Time of Discharge Medication Sig Dispensed Refills Start Date End Date clobetasol (TEMOVATE) 0.05 Apply topically. 45 g 0 03/2011 % ointment Apply daily to itchy bumps on right leg documented as of this encounter Discharge Disposition Disposition Code Departure Means Destination Home or Self [facility] documented in this encounter Plan of Treatment Not on filedocumented as of this encounter Visit Diagnoses Not on filedocumented in this encounter Care Teams Communications Assistant Relationship Specialty Start Date End Date None, Provider PCP - General 08/25/10 06/17/20 documented as of this encounter
--- OUTSIDE RECORDS SUMMARY | 2021-11-15 19:42 | XMS_ITS | Encounter Summary ---
:1960 Author Organization [facility] Address [address] [place] [address] Care Team Providers Name Role Phone None, Provider Primary Care Provider Unavailable Encounter Details Date Type Department Care Team Description 09/25/2013 Hospital Encounter [facility]- Vania Unknown, Provider, [facility] [address] [facility] [phone] [place] [address] (Work) [phone] Social History Tobacco Use Types Packs/Day Years [...] Code Departure Means Destination Home or Self [facility] documented in this encounter Plan of Treatment Not on filedocumented as of this encounter Visit Diagnoses Not on filedocumented in this encounter Care Teams Block Trader Relationship Specialty Start Date End Date None, Provider PCP - General 08/25/10 06/17/20 documented as of this encounter
== END ==
PROVIDERS: PCP Student in an Organized Health Care Education/Training Program; Visit Provider Student in an Organized Health Care Education/Training Program
DX: L90.5 Scar conditions and fibrosis of skin (principal)
CPT/HCPCS: 73140

== ENCOUNTER 2021-11-16 15:58 | Outpatient (CLI) | payer OTHER, SELFPAY ==
[2021-11-16 11:00] LABS: Abs Immature Grans 0.01 10^3/uL (0.0-0.06); Absolute Basophil Count 0.05 10^3/uL (0.0-0.2); Absolute Eosinophil Count 0.18 10^3/uL (0.0-0.7); Absolute Monocyte Count 0.62 10^3/uL (0.1-0.8); Absolute Neutrophil Count 3.06 10^3/uL (1.2-6.7); Basophils % 0.8; HCT 39.6 % (36.0-46.0); HGB 13.2 g/dL (11.2-15.7); Immature Grans % 0.2; Lymphocytes % 34.9; MCH 31.1 pg (27.0-33.0); MCHC 33.3 % (32.0-36.0); MCV 93 fL (80-95); MPV 10.2 fL (8.0-11.0); Monocytes % 10.3; Neutrophils % 50.8; Platelet Count 195 10^3/uL (130-400); RBC 4.24 10^6/uL (3.93-5.22); RDW 13.1 % (11.7-14.6); RDW-SD 44.9 fL; WBC 6.02 10^3/uL (4.4-10.8)
[2021-11-16 11:40] LABS: ALT 64 U/L (14-59); AST 38 U/L (15-37); Albumin 3.8 g/dL (3.4-5.0); Alkaline Phosphatase 57 U/L (46-116); Anion Gap 8.1 mmol/L (3-11); BUN 14 mg/dL (7-18); Bilirubin, Total 0.5 mg/dL (0.2-1.0); CO2 30.9 mmol/L (21.0-32.0); CREATININE 0.7 mg/dL (0.55-1.02); Calculated LDL 139 mg/dL (<100); Chloride 103 mmol/L (98-107); Cholesterol 213 mg/dL (<200); Glucose 93 mg/dL (74-106); HDL Cholesterol 53 mg/dL (40-60); Potassium 3.9 mmol/L (3.5-5.1); Sodium 142 mmol/L (136-145); TSH (W/Ref FT4) 2.34 uIU/mL (0.36-3.74); Total Protein 7.4 g/dL (6.4-8.2); Triglyceride 107 mg/dL (<150)
[2021-11-16 11:45] LABS: Epithelial Cells Few HPF (Negative); RBC 0-2 HPF (0-2); WBC 0-2 HPF (0-5)
[2021-11-16 11:46] LABS: Bacteria Negative HPF (Negative); C & S Indicated? No; Casts Negative LPF (Negative); Crystals Negative HPF (Negative); Mucus Trace (Negative)
== END 2021-11-16 15:59 | disposition home or self-care (01) ==
LOC: LBO 16:01
PROVIDERS: PCP Student in an Organized Health Care Education/Training Program; Visit Provider Student in an Organized Health Care Education/Training Program
DX: R53.83 Other fatigue (principal); E86.0 Dehydration; L98.8 Other specified disorders of the skin and subcutaneous tissue; Z13.220 Encounter for screening for lipoid disorders; Z87.440 Personal history of urinary (tract) infections
CPT/HCPCS: 36415; 80053; 80061; 81015; 84443; 85025

== ENCOUNTER 2021-12-28 10:54 | Outpatient (REF) | payer OTHER, SELFPAY ==
--- NOTE | 2021-12-28 09:40 | PAPFT_PTH ---
PATIENT: Racquel Lares LOC: [facility] U#:[id number] AGE/SX: 61/F ROOM: RE12/28/[address]: Rachele Taylor DO : 1960 BED: DIS: 12/28/2021 SPEC #: [id number] RECD: 12/28/21 12:54 STATUS: MERARI REQ #: [id number] VICKY: 12/28/21 09:[address]: Rachele Taylor DEPT: [facility] Cytology RECD BY: Racquel Lares ENTERED: 12/28/21 13:03 SP TYPE: PAPFT OTHR DR: Delia Amin DO Tissues: 1 - CX/ENDOCX FOR PAP SMEARS Procedures: PAP THIN PREP/[facility] Screening HPV DNA PROBE Comments: [id number] (HPV 16 & 18/45)
--- OUTSIDE RECORDS SUMMARY | 2021-12-28 10:57 | XMS_ITS | Encounter Summary ---
:1960 Author Organization [facility] Address [address] [place] [address] Care Team Providers Name Role Phone None, Provider Primary Care Provider Unavailable Encounter Details Date Type Department Care Team Description 09/25/2013 Hospital Encounter [facility]- Vania Unknown, Provider, [facility] [address] [facility] [phone] [place] [address] (Work) [phone] Social History Tobacco Use Types Packs/Day Years [...] Code Departure Means Destination Home or Self Residential documented in this encounter Plan of Treatment Not on filedocumented as of this encounter Visit Diagnoses Not on filedocumented in this encounter Care Teams Reservoir Engineering Manager Relationship Specialty Start Date End Date None, Provider PCP - General 08/25/10 06/17/20 documented as of this encounter
--- OUTSIDE RECORDS SUMMARY | 2021-12-28 10:57 | XMS_ITS | Encounter Summary ---
:1960 Author Organization [facility] Address [address] [place] [address] Care Team Providers Name Role Phone Unavailable Primary Care Provider Unavailable Encounter Details Date Type Department Care Team Description 07/09/2008 Before [facility] - Usama Patel MD Converted Visit Maple conversion [address] [facility] (Maple) [address] [place], [place] [address] [place] [address] [phone] Social History Tobacco Use Types Packs/Day Years Used Date Never Assessed Sex Assigned at Date Recorded Not on file documented as of this encounter Plan of Treatment Not on filedocumented as of this encounter Procedures Procedure Name Priority Date/Time Associated Diagnosis Comme [facility] CYTOPATHOLOGY Routine 07/09/2008 0:00 EDT Results [...] ? WALTER OZUNA ? Accession #: ? [id number] ? : ? 1960 (Age: 47) ??F [...] Organization Address City/State/ZIP Code Phon e Number [facility] [address] [place] [address] SERVICES [facility] [address] [place] [address] documented in this encounter Visit Diagnoses Not on filedocumented in this encounter
--- OUTSIDE RECORDS SUMMARY | 2021-12-28 10:57 | XMS_ITS | Clinical Summary ---
:1960 Author Organization [facility] Address [address] [place] [address] Care Team Providers Name Role Phone Odilon Russ MD Primary Care Provider Allergies No known active allergies Medications Medication Sig Dispensed Refills Start Date End Date Status clobetasol (TEMOVATE) Apply topically. 45 g 0 09/09/2010 Active 0.05 % ointment Apply daily to itchy bumps on right leg Active Problems Problem Noted Date Skin nodule 09/09/2010 Social History Tobacco Use Types Packs/Day Years [...] Assigned at Date Recorded Not on file Plan of Treatment Not on file Insurance Payer Benefit Plan Subscriber ID Effective Phone Address Typ e / Group Dates [employer] [id number] 2020-Prese [phone] [address] [employer] [address] [place] [address] [phone] (Work) Racquel Belle Personal/Family Self [address] (Home) [place], [place] [phone] [address] (Work) Racquel Belle Personal/Family Self [address] (Home) [place], [place] [phone] [address] (Work) Racquel Belle Personal/Family Self [address] (Home) [place], [place] [phone] [address] (Work) Racquel Belle Personal/Family Self [address] (Home) [place], [place] [phone] (Work) Care Teams Licensed Aircraft Maintenance Engineer Relationship Specialty Start Date End Date Odilon Russ MD PCP - General 06/18/[address] [place] [address] [address] [place], [place] [id number]
--- OUTSIDE RECORDS SUMMARY | 2021-12-28 10:57 | XMS_ITS | Encounter Summary ---
:1960 Author Organization [facility] Address [address] [place] [address] Care Team Providers Name Role Phone None, Provider Primary Care Provider Unavailable Encounter Details Date Type Department Care Team Description 11/27/2018 Hospital Encounter [facility]- Vania Unknown, Provider, [facility] [address] [facility] [phone] [place] [address] (Work) [phone] Social History Tobacco Use Types Packs/Day Years [...] Code Departure Means Destination Home or Self Alf documented in this encounter Plan of Treatment Not on filedocumented as of this encounter Visit Diagnoses Not on filedocumented in this encounter Care Teams Injection Molding Technician Relationship Specialty Start Date End Date None, Provider PCP - General 08/25/10 06/17/20 documented as of this encounter
--- OUTSIDE RECORDS SUMMARY | 2021-12-28 10:57 | XMS_ITS | Encounter Summary ---
:1960 Author Organization [facility] Address [address] [place] [address] Care Team Providers Name Role Phone None, Provider Primary Care Provider Unavailable Encounter Details Date Type Department Care Team Description 11/27/2018 Results Only [facility]- [facility] Herrera Luna MD [phone] [address] [place] [address] Social History Tobacco Use Types Packs/Day [...] 23:35 EDT) Pathology Report: SURGICAL PATHOLOGY REPORT [facility] Reports generated via electronic interface conta in original data; CENTER LABORATORY however they are lacking the format of the original re port. SERVICES Caution should be taken when reading/interpreting unfo rmatted reports. Name: ? WALTER OZUNA ? Accession #: ? [id number] ? : ? 1960 (Age: 57 ) ??F ? Collect Date: ? 11/27/2018 ? Location: ? [facility] ? Receive Date: ? 11/28/19 19 ? Provider: HERRERA LUNA MD Copy to: LILIAN PINEDA MD ? Final Pathologic Diagnosis: ENDOCERVIX, CURETTAGE: - Rare benign endocervical cells; insufficient for fur ther diagnosis. See comment. Comment: We have reviewed the prior P ap test ([id number]) and agree with the diagnosis of low [...] Organization Address City/State/ZIP Code Phon e Number [facility] [address] [place] [address] SERVICES documented in this encounter Visit Diagnoses Not on filedocumented in this encounter Care Teams Hair Mixer Relationship Specialty Start Date End Date None, Provider PCP - General 08/25/10 06/17/20 documented as of this encounter
--- OUTSIDE RECORDS SUMMARY | 2021-12-28 10:57 | XMS_ITS | Encounter Summary ---
:1960 Author Organization [facility] Address [address] [place] [address] Care Team Providers Name Role Phone None, Provider Primary Care Provider Unavailable Encounter Details Date Type Department Care Team Description 10/24/2018 Results Only [facility]- Chandrakant Jimenez, GREY TENDER [phone] [facility] [place] [address] Social History Tobacco Use Types [...] (10/24/2018 0:00 EDT) Pathology Report: CYTOPATHOLOGY REPORT [facility] Reports generated via electronic interface contain carmelita ginal data; SERVICES however they are lacking the format of the original re port. Caution should be taken when reading/interpreting unfo rmatted reports. Name: ? WALTER OZUNA ? Accession #: ? [id number] ? : ? 1960 (Age: 57 ) ??F ?Collect Date: ? 10/24/2018 ? Location: ? [facility] ? Receive Date: ? 10/26/19 19 ? Provider: CHANDRAKANT MENDOZA GREY TENDER Copy to: LILIAN PINEDA MD ? Final [...] 8,31, 33,35,39,45,51,52,56,58,59,66, and 68 is detected by quenching car operator mediated amplification. High and intermediate risk HPV [...] Organization Address City/State/ZIP Code Phon e Number [facility] [address] [place] [address] SERVICES documented in this encounter Visit Diagnoses Not on filedocumented in this encounter Care Teams Intellectual Property Counsel Relationship Specialty Start Date End Date None, Provider PCP - General 08/25/10 06/17/20 documented as of this encounter
--- OUTSIDE RECORDS SUMMARY | 2021-12-28 10:57 | XMS_ITS | Encounter Summary ---
:1960 Author Organization [facility] Address [address] [place] [address] Care Team Providers Name Role Phone None, Provider Primary Care Provider Unavailable Encounter Details Date Type Department Care Team Description 11/12/2018 Hospital Encounter [facility]- Vania Unknown, Provider, [facility] [address] [facility] [phone] [place] [address] (Work) [phone] Social History Tobacco Use Types Packs/Day Years [...] Code Departure Means Destination Home or Self Senior Living documented in this encounter Plan of Treatment Not on filedocumented as of this encounter Visit Diagnoses Not on filedocumented in this encounter Care Teams Communications Executive Relationship Specialty Start Date End Date None, Provider PCP - General 08/25/10 06/17/20 documented as of this encounter
--- OUTSIDE RECORDS SUMMARY | 2021-12-28 10:57 | XMS_ITS | Encounter Summary ---
:1960 Author Organization [facility] Address [address] [place] [address] Care Team Providers Name Role Phone None, Provider Primary Care Provider Unavailable Encounter Details Date Type Department Care Team Description 09/25/[address] Results [address] [facility]- PRISM Tash Johnson MD [phone] [address] [place] [address] Social History Tobacco Use Types Packs/Day Years [...] Procedure Name Priority Date/Time Associated Diagnosis Comme [facility] SURGICAL PATHOLOGY Routine 09/25/2013 9:29 EDT Re [...] ? WALTER OZUNA ? Accession #: ? [id number] ? : ? 1960 (Age: 52) ??F [...] Organization Address City/State/ZIP Code Phon e Number [facility] [address] [place] [address] SERVICES [facility] [address] [place] [address] documented in this encounter Visit Diagnoses Not on filedocumented in this encounter Care Teams Leather Novelty Parts Cutter Relationship Specialty Start Date End Date None, Provider PCP - General 08/25/10 06/17/20 documented as of this encounter
--- OUTSIDE RECORDS SUMMARY | 2021-12-28 10:57 | XMS_ITS | Encounter Summary ---
:1960 Author Organization [facility] Address [address] [place] [address] Care Team Providers Name Role Phone Unavailable Primary Care Provider Unavailable Encounter Details Date Type Department Care Team Description 09/06/2006 Results Only [facility] - Sonja Wright, Chr istopher, conversion DO [address] [facility] [address] [facility] KAIA BUENROSTRO [address] [place], [place] [id number] [place] [address] (Wo rk) Social History Tobacco Use Types Packs/Day Years Used Date Never Assessed Sex Assigned at Date Recorded Not on file documented as of this encounter Plan of Treatment Not on filedocumented as of this encounter Procedures Procedure Name Priority Date/Time Associated Diagnosis Comme [facility] SURGICAL PATHOLOGY Routine 09/06/2006 0:00 EDT Re sults for this procedure are i n the results section. documented in this encounter Results SURGICAL PATHOLOGY (09/06/2006 0:00 EDT) Pathology Report: SURGICAL PATHOLOGY REPORT [facility] Reports generated via electronic interface contain carmelita ginal data; LAB however they are lacking the format of the original re port. Caution should be taken when reading/interpreting unfo rmatted reports. Name: ? WALTER OZUNA ? Accession #: ? [id number] ? : ? 1960 (Age: 45) ??F ? Collect Date: ? 09/06/2006 ? Location: ? [facility] ? Receive Date: ? 007 ? Provider: MISTI WRIGHT DO Copy to: LILIAN PINEDA MD ? Final Pathologic Diagnosis: ? Skin of leg, right, punch biopsy: - Lichenoid interface dermatitis. See microscopic and comment. Comment: ? The findings could be seen in lichen planus-like keratosis. Other causes of lichenoid interface dermatitis are not excluded. (Dr. Mejias)/[facility] Microscopic Description: ? The sections show skin with hyperkeratosis, are as of hypergranulosis, epidermal hyperplasia, and basal keratinocytic vacuola r interface changes associated with a lichenoid lymphohistiocytic inflamma tory infiltrate. (Dr. Mejias)/[facility] Document reviewed and electronically signed by: Bernabe Mejias MD Report ??Date: 09/08/2006 17:50 By the signature above, the attending physician certif ies that he/she has personally conducted a gross and/or microscopic examin ation of the described specimens and rendered or confirmed the above diagnosi s. Specimen(s) Received: ? Punch biopsy right leg Clinical History: ? Skin lesion right leg Gross Description: ? Received in formalin labelled Ozuna and skin lesion right leg is a sun-white skin punch biopsy measuring 0.2 cm in diameter and excised to a depth of 0.4 cm. The specimen is submitted intact in one mirna sette. (Jayce Zelaya MD)/[facility] End of Report Specimen Performing Organization Address City/State/ZIP Code Phon e Number [facility] [address] [place] [address] SERVICES [facility] [address] [place] [address] documented in this encounter Visit Diagnoses Not on filedocumented in this encounter
--- OUTSIDE RECORDS SUMMARY | 2021-12-28 10:57 | XMS_ITS | Encounter Summary ---
:1960 Author Organization [facility] Address [address] [place] [address] Care Team Providers Name Role Phone None, Provider Primary Care Provider Unavailable Reason for Visit Reason Comments New Patient Visit RASH ON RIGHT LEG Encounter Details Date Type Department Care Team Description 09/09/2010 Office Visit [facility] Bee Goldberg Nodu le (Primary Dx); Dermatology - [facility] Xeroderma [id number] [place] [address] [facility] [address] [place] [address] (Wo rk) Social History Tobacco [...] encounter Progress Notes Donald Cool - 09/09/2010 1516 EDT DONALD COOL MD Bee Goldberg PA - 09/09/2010 1014 EDT Images from the original note were not included. PROBLEM: RASH SUBJECTIVE: Patient presents today for evaluation of a rash on the right sheldon. Present for: several years Itchy? Yes: (extremely) Painful? No Evaluated by other provider? Yes: was seen by a field staff years ago and by PCP - punch biopsy [id number] showed lichenoid interface changes (I reviewed the [...] BIOPSY PROCEDURE NOTE PATIENT INFORMATION: Racquel Belle [id number] 1960 DATE OF PROCEDURE: 09/09/2010 SURGEON: EMILIE Chavez OUTPATIENT SCHEDULER: PROCEDURE NOTE Specimen A Procedure: Punch Biopsy [...] encounter Miscellaneous Notes Scanned Note-Null - Mario, Training And Development Manager - 09/14/2010 1353 EDT documented in this encounter Plan of Treatment Scheduled Orders Name Type Priority Associated Diagnoses Order S chedule SURGICAL PATHOLOGY- ORDER Pathology Routine Nodule Or dered: 09/09/2010 ONLY documented as of this encounter Visit Diagnoses Diagnosis Nodule - Primary Localized superficial swelling, mass, or lump 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
--- OUTSIDE RECORDS SUMMARY | 2021-12-28 10:57 | XMS_ITS | Encounter Summary ---
:1960 Author Organization [facility] Address [address] [place] [address] Care Team Providers Name Role Phone Unavailable Primary Care Provider Unavailable Encounter Details Date Type Department Care Team Description 02/19/2001 Results Only [facility] - Berenice Mayer MD conversion [address] [facility] [address] [place], [place] [address] [place] [address] [phone] Social History Tobacco Use Types Packs/Day Years Used Date Never Assessed Sex Assigned at Date Recorded Not on file documented as of this encounter Plan of Treatment Not on filedocumented as of this encounter Procedures Procedure Name Priority Date/Time Associated Diagnosis Comme [facility] SURGICAL PATHOLOGY Routine 02/19/2001 0:00 EDT [...] ? WALTER OZUNA ? Accession #: ? [id number] ? : ? 1960 (Age: 40) ??F [...] 2.7 x 1.3 x 1.2 cm. ??[employer]arel trimmings sales representative section is submit adrian as (A). Received in formalin labelled Ozuna and 2- Left tonsil is an ovoid portion of sun-pink, focally hyperemic soft tiss ue which measures 2.5 x 1.9 x 1.2 cm. ??[employer] trimmings sales representative section is submitte d as (B). ??(E. Jaime)/[facility] End of Report Specimen Performing Organization Address City/State/ZIP Code Phon e Number [facility] [address] [place] [address] SERVICES [facility] [address] [place] [address] documented in this encounter Visit Diagnoses Not on filedocumented in this encounter
--- OUTSIDE RECORDS SUMMARY | 2021-12-28 10:57 | XMS_ITS | Encounter Summary ---
:1960 Author Organization [facility] Address [address] [place] [address] Care Team Providers Name Role Phone Unavailable Primary Care Provider Unavailable Encounter Details Date Type Department Care Team Description 09/28/2005 Results Only [facility] - Usama Olson MD Maple conversion [address] [place] [address] [place], [place] [address] [phone] Social History Tobacco Use Types Packs/Day Years Used Date Never Assessed Sex Assigned at Date Recorded Not on file documented as of this encounter Plan of Treatment Not on filedocumented as of this encounter Procedures Procedure Name Priority Date/Time Associated Diagnosis Comme nts CYTOPATHOLOGY Routine 09/28/2005 0:00 EDT Results for this procedure are i n the results section . documented in this encounter Results CYTOPATHOLOGY (09/28/2005 0:00 EDT) Pathology Report: CYTOPATHOLOGY REPORT [facility] Reports generated via electronic interface contain carmelita ginal data; however they are lacking the format of the original re port. Caution should be taken when reading/interpreting unfo rmatted reports. Name: ? WALTER OZUNA ? Accession #: ? [id number] : ? 1960 (Age: 44) ??F ?Collect Date: ? 08/31 Location: ? [facility] ? Receive Date : ? 09/30/2005 Provider: ?SOUMYA OLSON MD Copy to: ? Specimen/Source: ? ThinPrep Pap Test, Vagina/Cervix/Endocervix, processed on [employer] ThinPrep Imaging System, with manual evaluati on Last Menstrual Period: ? 09/15 Previous Gynecologic Pathology: ? ASC-US: 06/18/03 Other: ? Additional clinical informat ion: Previous atypical. Negative HPV for high risk. ? SPECIMEN ADEQUACY ? Satisfactory for Evaluation - transformation zone component present GENERAL CATEGORIZATION ? Negative for Intraepithelial Lesion or Malignan cy ? Document reviewed and electronically signed by: ? BISI Galvin(ASCP) ? Report Date: ??10/04/2005 13:13 End of Report Specimen Performing Organization Address City/State/ZIP Code Phon e Number [facility] [address] [place] [address] SERVICES [facility] [address] [place] [address] documented in this encounter Visit Diagnoses Not on filedocumented in this encounter
--- OUTSIDE RECORDS SUMMARY | 2021-12-28 10:57 | XMS_ITS | Encounter Summary ---
:1960 Author Organization [facility] Address [address] [place] [address] Care Team Providers Name Role Phone None, Provider Primary Care Provider Unavailable Encounter Details Date Type Department Care Team Description 11/12/2018 Results Only [facility] Herrera Luna MD [phone] [address] [place] [address] Social History Tobacco Use Types Packs/Day [...] Associated Diagnosis Comme nts SURGICAL PATHOLOGY Routine 11/12/2018 22:57 Resul ts for this EDT procedure are i n the results section. documented in this encounter Results SURGICAL PATHOLOGY (11/12/2018 22:57 EDT) Pathology Report: SURGICAL PATHOLOGY REPORT [facility]ICA L Reports generated via electronic interface conta in original data; CENTER LABORATORY however they are lacking the format of the original re port. SERVICES Caution should be taken when reading/interpreting unfo rmatted reports. Name: ? WALTER OZUNA ? Accession #: ? [id number] ? : ? 1960 (Age: 57 ) ??F ? Collect Date: ? 11/12/2018 ? Location: ? [facility] ? Receive Date: ? 11/13/19 19 ? Provider: HERRERA LUNA MD Copy to: CHANDRAKANT PINEDA MD ? Final Pathologic Diagnosis: ENDOCERVIX, CURETTINGS: - Tissue insufficient for diagnosis. See Comment. Comment: Deeper sections have been examined. 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 ??The dysplast ic cells seen on the Pap test are not identified in the current case. ?? Document reviewed and electronically signed by: ALEX PIÑA MD PHD Report ??Date: 11/14/2018 11:44 By the signature above, the attending physician certif ies that he/she has personally conducted a gross and/or microscopic examin ation of the described specimens and rendered or confirmed the above diagnosi s. Specimen(s) Received: ECC Clinical History: 10/24/18 LSIL, (+)HPV; LMP: postmenopausal Gross Description: ? Received in formalin labelled with proper patient identification (initials C, L) and ECC is an aggreg ate of scant amount of white material (less than 0.1 x 0.1 x 0.1 cm). Submitted entirely in 1. Anushka Johnson 11/13/2018 8:24 AM End of Report Specimen Performing Organization Address City/State/ZIP Code Phon e Number [facility] [address] [place] [address] SERVICES documented in this encounter Visit Diagnoses Not on filedocumented in this encounter Care Teams Precision Dyer Relationship Specialty Start Date End Date None, Provider PCP - General 08/25/10 06/17/20 documented as of this encounter
--- OUTSIDE RECORDS SUMMARY | 2021-12-28 10:57 | XMS_ITS | Encounter Summary ---
:1960 Author Organization [facility] Address [address] [place] [address] Care Team Providers Name Role Phone Odilon Russ MD Primary Care Provider Encounter Details Date Type Department Care Team Description 06/18/2020 Lab Requisition [facility] Rachele Taylor Encounter for other Pathology & [address] [place] [address] general examination Laboratory Medicine [facility] [phone] [place] [address] [place] [address] (Work) [phone] Social History Tobacco Use Types Packs/Day Years [...] squamous metapla kwabena. Attestation By the signature [facility] Electronica lly below, the attending CENTER signed by physician Roel certifies LABORATORY Stas Mays MD on that they have 1) SERVICES 06/19/2020 at 1004 personally conducted a gross and/or microscopic examination of the described specimen(s), and/or personally interpreted the results of laboratory testing of the described specimen(s), and 2) personally rendered or confirmed the above diagnosis. Clinical History +HR HPV [facility] SERVICES Gross Description A[facility] Received in formalin jacklyn d [...] B1. EMILIE LANE(ASCP) 06/18/2020 18:24 Performing Lab [facility] SERVICES Scanned Images [facility] SERVICES Specimen Tissue - Entire endocervix (body structu re) Tissue specimen (specimen) - Entire endo cervix (body structure) Performing Organization Address City/State/ZIP Code Phon e Number [facility] [address] [place] [address] SERVICES documented in this encounter Visit Diagnoses Diagnosis Encounter for other general examination documented in this encounter Care Teams Reference Librarian Relationship Specialty Start Date End Date Odilon Russ MD PCP - General 06/18/[address] [place] [address] [address] [place], [place] [id number] documented as of this encounter
--- OUTSIDE RECORDS SUMMARY | 2021-12-28 10:57 | XMS_ITS | Encounter Summary ---
:1960 Author Organization [facility] Address [address] [place] [address] Care Team Providers Name Role Phone None, Provider Primary Care Provider Unavailable Encounter Details Date Type Department Care Team Description 09/09/2010 Results Only [facility] Paula Goldberg PA-C [facility] [phone] [place] [address], [place] [address] (Wo rk) Social History Tobacco Use Types [...] ? WALTER OZUNA ? Accession #: ? [id number] ? : ? 1960 (Age: 49) ??F [...] of lichen planus. The patient's prior biopsy ([id number]) has been reviewed in ? conjunction with the current specimen, and both show similar features. This case was shown in intradepartment al consultation. ??(Dr. Turner)/[facility] ? Microscopic Description: ? There is [...] Deeper levels have been ? examined. (Dr. Turner)/[facility] ? Document reviewed and electr onically [...] Organization Address City/State/ZIP Code Phon e Number [facility] [address] [place] [address] SERVICES [facility] [address] [place] [address] documented in this encounter Visit Diagnoses Not on filedocumented in this encounter Care Teams Inspector Automatic Typewriter Relationship Specialty Start Date End Date None, Provider PCP - General 08/25/10 06/17/20 documented as of this encounter
== END 2021-12-28 10:55 | disposition home or self-care (01) ==
LOC: LBN 10:54
PROVIDERS: PCP Student in an Organized Health Care Education/Training Program; Visit Provider Obstetrics & Gynecology
DX: Z12.4 Encounter for screening for malignant neoplasm of cervix (principal); Z11.51 Encounter for screening for human papillomavirus (HPV); R87.810 Cervical high risk human papillomavirus (HPV) DNA test positive
CPT/HCPCS: 88142; 87624

== ENCOUNTER 2022-01-20 16:01 | Outpatient (REF) | payer OTHER, SELFPAY ==
--- NOTE | 2022-01-20 14:30 | ENDO_PTH ---
PATIENT: Radha Laresn Aleta LOC: [facility] U#:[id number] AGE/SX: 61/F ROOM: RE01/20/[address]: Rachele Taylor DO : 1960 BED: DIS: 01/20/2022 SPEC #: [id number] RECD: 01/20/22 17:34 STATUS: MERARI REQ #: [id number] VICKY: 01/20/22 14:[address]: Rachele Taylor DEPT: Surgical Specimen RECD BY: Racquel Lares ENTERED: 01/20/22 17:35 SP TYPE: Endo OTHR DR: Delia Amin DO Tissues: 1 - ENDOCERVICAL BX/CURRETTE Procedures: GROSS AND MICRO LEVEL 4 Comments: [id number]
== END 2022-01-20 16:02 | disposition home or self-care (01) ==
LOC: LBN 16:01
PROVIDERS: PCP Student in an Organized Health Care Education/Training Program; Visit Provider Obstetrics & Gynecology
DX: N88.8 Other specified noninflammatory disorders of cervix uteri (principal); R87.810 Cervical high risk human papillomavirus (HPV) DNA test positive
CPT/HCPCS: 88305

== ENCOUNTER → 2022-01-21 00:18 | Outpatient (CLI) | payer OTHER, SELFPAY ==
--- OUTSIDE RECORDS SUMMARY | 2022-01-21 00:20 | XMS_ITS | Encounter Summary ---
:1960 Author Organization [facility] Address [address] [place] [address] Care Team Providers Name Role Phone None, Provider Primary Care Provider Unavailable Encounter Details Date Type Department Care Team Description 06/01/2017 Results Only [facility]- PRISM Tash Johnson MD [phone] [address] [place] [address] Social History Tobacco Use Types Packs/Day Years [...] Diagnosis Comme nts PAP TEST- RESULT Routine 06/01/2017 0:00 EST Resu lts for this ONLY procedure are i n the results section. documented in this encounter Results PAP TEST- RESULT ONLY (06/01/2017 0:00 EST) Pathology Report: CYTOPATHOLOGY REPORT [facility] Reports generated via electronic interface contain carmelita ginal data; SERVICES however they are lacking the format of the original re port. Caution should be taken when reading/interpreting unfo rmatted reports. Name: ? WALTER OZUNA ? Accession #: ? [id number] ? : ? 1960 (Age: 56 ) ??F ?Collect Date: ? 2017 ? Location: ? [facility] ? Receive Date: ? 8 ? Provider: TASH JOHNSON MD Copy to: LILIAN PINEDA MD ? Final Report SPECIMEN ADEQUACY ? Satisfactory for Evaluation - transformation zone component present GENERAL CATEGORIZATION ? Negative for Intraepithelial Lesion or Malignan cy ?? Other: Additional clinical information: Last PAP 2013, Low Risk PAP Hx Specimen/Source: ??Pap Test, Cervix, ThinPrep Imaging System with manual evaluation Document reviewed and electronically signed by: ? Maria Antonia Garces, CT(ASCP) ? Report ??Date: 06/08/2017 15:08 HPV with Pap Test ? Date Ordered: ? 06/08/2017 ? Status: ?? S igned Out ?Date Complete: ? 06/09/2017 ? By: ??Sys tem Interface ? Date Reported: ? 06/09/2017 ? Interpretation RESULT: Positive for high or intermediate risk HPV. E6 OR E7 mRNA from one or more types of HPV types 16,1 8,31, 33,35,39,45,51,52,56,58,59,66, and 68 is detected by passenger flagman mediated amplification. High and intermediate risk HPV types are associated wi th most squamous intraepithelial lesions and cervical can cers. Comments Document reviewed and electronically signed by: ? System Interface ? Report date: 06/09/2017 By the signature above, the attending physician certif ies that he/she has personally conducted a gross and/or microscopic examin ation of the described specimens and rendered or confirmed the above diagnosi s. End of Report Specimen Performing Organization Address City/State/ZIP Code Phon e Number [facility] [address] [place] [address] SERVICES documented in this encounter Visit Diagnoses Not on filedocumented in this encounter Care Teams In Home Aide Relationship Specialty Start Date End Date None, Provider PCP - General 08/25/10 06/17/20 documented as of this encounter
--- OUTSIDE RECORDS SUMMARY | 2022-01-21 00:20 | XMS_ITS | Encounter Summary ---
:1960 Author Organization [facility] Address [address] [place] [address] Care Team Providers Name Role Phone None, Provider Primary Care Provider Unavailable Encounter Details Date Type Department Care Team Description 11/27/2018 Hospital Encounter [facility]- Vania Unknown, Provider, [facility] [address] [facility] [phone] [place] [address] (Work) [phone] Social History Tobacco Use Types Packs/Day Years [...] Code Departure Means Destination Home or Self Snf documented in this encounter Plan of Treatment Not on filedocumented as of this encounter Visit Diagnoses Not on filedocumented in this encounter Care Teams Laser Beam Trim Operator Relationship Specialty Start Date End Date None, Provider PCP - General 08/25/10 06/17/20 documented as of this encounter
--- OUTSIDE RECORDS SUMMARY | 2022-01-21 00:20 | XMS_ITS | Encounter Summary ---
:1960 Author Organization [facility] Address [address] [place] [address] Care Team Providers Name Role Phone None, Provider Primary Care Provider Unavailable Encounter Details Date Type Department Care Team Description 10/24/2018 Results Only [facility]- Chandrakant Jimenez, MORTGAGE COUNSELOR [phone] [facility] [place] [place] [address] Social History Tobacco Use Types [...] (10/24/2018 0:00 EDT) Pathology Report: CYTOPATHOLOGY REPORT [facility] Reports generated via electronic interface contain carmelita ginal data; SERVICES however they are lacking the format of the original re port. Caution should be taken when reading/interpreting unfo rmatted reports. Name: ? WALTER OZUNA ? Accession #: ? [id number] ? : ? 1960 (Age: 57 ) ??F ?Collect Date: ? 10/24/2018 ? Location: ? [facility] ? Receive Date: ? 10/26/19 19 ? Provider: CHANDRAKANT MENDOZA MORTGAGE COUNSELOR Copy to: LILIAN PINEDA MD ? Final [...] 8,31, 33,35,39,45,51,52,56,58,59,66, and 68 is detected by cobbler upper mediated amplification. High and intermediate risk HPV [...] Organization Address City/State/ZIP Code Phon e Number [facility] [address] [place] [address] SERVICES documented in this encounter Visit Diagnoses Not on filedocumented in this encounter Care Teams Rubber Insulator Relationship Specialty Start Date End Date None, Provider PCP - General 08/25/10 06/17/20 documented as of this encounter
--- OUTSIDE RECORDS SUMMARY | 2022-01-21 00:20 | XMS_ITS | Encounter Summary ---
:1960 Author Organization [facility] Address [address] [place] [address] Care Team Providers Name Role Phone None, Provider Primary Care Provider Unavailable Encounter Details Date Type Department Care Team Description 11/12/2018 Hospital Encounter [facility]- Vania Unknown, Provider, [facility] [address] [facility] [phone] [place] [address] (Work) [phone] Social History Tobacco Use Types Packs/Day Years [...] Code Departure Means Destination Home or Self [place] documented in this encounter Plan of Treatment Not on filedocumented as of this encounter Visit Diagnoses Not on filedocumented in this encounter Care Teams Peanut Butter Maker Relationship Specialty Start Date End Date None, Provider PCP - General 08/25/10 06/17/20 documented as of this encounter
--- OUTSIDE RECORDS SUMMARY | 2022-01-21 00:20 | XMS_ITS | Encounter Summary ---
:1960 Author Organization [facility] Address [address] [place] [address] Care Team Providers Name Role Phone None, Provider Primary Care Provider Unavailable Encounter Details Date Type Department Care Team Description 09/25/2013 Hospital Encounter [facility]- Vania Unknown, Provider, [facility] [address] [facility] [phone] [place] [address] (Work) [phone] Social History Tobacco Use Types Packs/Day Years [...] on filedocumented in this encounter Care Teams Mounter Clarinets Relationship Specialty Start Date End Date None, Provider PCP - General 08/25/10 06/17/20 documented as of this encounter
--- OUTSIDE RECORDS SUMMARY | 2022-01-21 00:20 | XMS_ITS | Encounter Summary ---
:1960 Author Organization [facility] Address [address] [place] [address] Care Team Providers Name Role Phone None, Provider Primary Care Provider Unavailable Encounter Details Date Type Department Care Team Description 09/09/2010 Results Only [facility] Paula Goldberg PA-C [facility] [address] [place] [address], [place] [address] (Wo rk) Social History Tobacco Use Types [...] ? WALTER OZUNA ? Accession #: ? [id number] ? : ? 1960 (Age: 49) ??F [...] of lichen planus. The patient's prior biopsy ([id number]) has been reviewed in ? conjunction with the current specimen, and both show similar features. This case was shown in intradepartment al consultation. ??(Dr. Turner)/[facility] ? Microscopic Description: ? There is [...] levels have been ? examined. (Dr. Turner)/[facility] ? Document reviewed and electr onically [...] Organization Address City/State/ZIP Code Phon e Number [facility] [address] [place] [address] SERVICES [facility] [address] [place] [address] documented in this encounter Visit Diagnoses Not on filedocumented in this encounter Care Teams Resort Manager Relationship Specialty Start Date End Date None, Provider PCP - General 08/25/10 06/17/20 documented as of this encounter
--- OUTSIDE RECORDS SUMMARY | 2022-01-21 00:20 | XMS_ITS | Encounter Summary ---
:1960 Author Organization [facility] Address [address] [place] [address] Care Team Providers Name Role Phone Unavailable Primary Care Provider Unavailable Encounter Details Date Type Department Care Team Description 09/28/2005 Results Only [facility] - Usama Olson MD Maple conversion [address] [place] [address] [place], [place] [address] [phone] Social History Tobacco Use Types Packs/Day Years [...] WALTER OZUNA ? Accession #: ? [id number] : ? 1960 (Age: 44) ??F ?Collect Date: ? 08/31 Location: ? [facility] ? Receive Date : ? 09/30/2005 Provider: ?SOUMYA OLSON MD Copy to: ? Specimen/Source: ? ThinPrep Pap Test, Vagina/Cervix/Endocervix, processed on [employer] ThinPrep Imaging System, with manual evaluati on [...] City/State/ZIP Code Phon e Number [facility] [address] [place] [address] SERVICES [facility] [address] [place] [address] documented in this encounter Visit Diagnoses Not on filedocumented in this encounter
--- OUTSIDE RECORDS SUMMARY | 2022-01-21 00:20 | XMS_ITS | Encounter Summary ---
:1960 Author Organization [facility] Address [address] [place] [address] Care Team Providers Name Role Phone Unavailable Primary Care Provider Unavailable Encounter Details Date Type Department Care Team Description 07/09/2008 Before [facility] - Usama Patel MD Converted Visit Maple conversion [address] [facility] (Maple) [address] [place], [place] [address] [place] [address] [phone] Social History Tobacco Use Types Packs/Day Years Used Date Never Assessed Sex Assigned at Date Recorded Not on file documented as of this encounter Plan of Treatment Not on filedocumented as of this encounter Procedures Procedure Name Priority Date/Time Associated Diagnosis Comme [facility] CYTOPATHOLOGY Routine 07/09/2008 0:00 EDT Results [...] ? WALTER OZUNA ? Accession #: ? [id number] ? : ? 1960 (Age: 47) ??F [...] Organization Address City/State/ZIP Code Phon e Number [facility] [address] [place] [address] SERVICES [facility] [address] [place] [address] documented in this encounter Visit Diagnoses Not on filedocumented in this encounter
--- OUTSIDE RECORDS SUMMARY | 2022-01-21 00:20 | XMS_ITS | Encounter Summary ---
:1960 Author Organization [facility] Address [address] [place] [address] Care Team Providers Name Role Phone Odilon Russ MD Primary Care Provider Encounter Details Date Type Department Care Team Description 12/29/2021 Lab Requisition [facility] Rachele Taylor Encounter for other Pathology & [address] [place] [address] general examination Laboratory Medicine [facility] [address] [place] [address] [place] [address] (Work) [phone] Social History Tobacco Use Types Packs/Day Years [...] encounter Procedures Procedure Name Priority Date/Time Associated Comments Diagnosis PAP TEST Today 12/28/2021 9:40 Encounter for other Resul ts for this EDT general examination procedur e are in the results section. HPV GENOTYPES 16 AND Today 12/28/2021 9:40 Encounter for oth er Results for this 18/45 EDT general examination procedur e are in the results section. HUMAN PAPILLOMAVIRUS Today 12/28/2021 9:40 Encounter for oth er Results for this (HPV) DETECTION-HIGH EDT general examination procedure are in RISK TYPES the results section. documented in this encounter Results HPV GENOTYPES 16 AND 18/45 (12/28/2021 9:40 EDT) Pathologist Sig nature HPV16 RNA Negative Negative [facility] SERVICES HPV18/45 RNA Negative Negative [facility] (HPV18/45) LABORATORY SERVICES Specimen Pap Test - Cervix and/or Endocervix Performing Organization Address City/[facility]/ZIP Code Phon e Number [facility] [address] [place] [address] SERVICES (ABNORMAL) HUMAN PAPILLOMAVIRUS (HPV) DETECTION-HIGH RISK TYPES (12/28/2021 9:40 EDT) Human Papillomavirus Positive (A)Comment: Negative [facility] (HPV) Detection-High E6 OR E7 mRNA from CENTER Types one or more types of LABORATORY HPV types SERVICES 16,18,31,33,35,39,45, 51,52,56,58,59,66, and 68 is detected by game manager mediated amplification. High and intermediate risk HPV types are associated with most squamous intraepithelial lesions and cervical cancers. Specimen Pap Test - Cervix and/or Endocervix Performing Organization Address City/[facility]/ZIP [facility] Phon e Number [facility] [address] [place] [address] SERVICES PAP TEST (12/28/2021 9:40 EDT) Specimens A. Cervix and/or [facility] Endocervix , ThinPrep CENTER Imaging System with LABORATORY Manual Evaluation SERVICES Specimen Adequacy Satisfactory for [facility] Evaluation - CENTER transformation zone LABORATORY component present SERVICES General Negative for [facility] Categorization intraepithelial CENTER lesion or malignancy LABORATORY SERVICES Descriptive Reactive cellular [facility] Diagnosis changes associated CENTER with inflammation LABORATORY present (includes SERVICES repair). Attestation By the signature below, the attending physician certifies that they have personally conducted a gross and/or microscopic [facility] Electronically examination of the described specimens and rendered or confirmed the above diagnosis. CENTER signed by MAURICE Colon MD on SERVICES 01/13/2022 at 14 23 Clinical History See below [facility] SERVICES HPV The result for the Human Pap illomavirus (HPV) Detection-High Risk Types is Positive . E6 OR E7 mRNA from one or more types of HPV types 16,18,31,33,35,39,45,51,52,56,58,59,66, and 68 is detected by carolina [facility] scription mediated amplifica tion. High and intermediate risk HPV types are associated with most squamous intraepithelial lesions and cervical cancers. Testing was performed on specimen [id number] and CENTER was resulted on 01/08/2022 1116 EDT by BABITA, LAB INSTRUMENT RESULTS IN LABORATORY SERVICES Genotyping 16 & The results for the HPV Radha types 16 and 18/45 are Negative for the HPV16 RNA and Negative for the HPV18/45 RNA (HPV18/45). Testing was performed on specimen [id number] and was resulted on 01/13/2022 1420 EDT by BABITA, LAB INSTRUMENT RESULTS IN [facility] [address] [place] [address] LABORATORY SERVICES Performing Lab [facility] [[email or web address]] LAB [facility] SERVICES Scanned Images [facility] SERVICES Specimen Pap Test - Cervix and/or Endocervix Performing Organization Address City/State/ZIP Code Phon e Number [facility] [address] [place] [address] SERVICES documented in this encounter Visit Diagnoses Diagnosis Encounter for other general examination documented in this encounter Care Teams [employer] Scout Relationship Specialty Start Date End Date Odilon Russ MD PCP - General 06/18/[address] [place] [address] [address] [place], [place] [address] documented as of this encounter
--- OUTSIDE RECORDS SUMMARY | 2022-01-21 00:20 | XMS_ITS | Encounter Summary ---
:1960 Author Organization [facility] Address [address] [place] [address] Care Team Providers Name Role Phone None, Provider Primary Care Provider Unavailable Encounter Details Date Type Department Care Team Description 09/25/[address] [facility]- [facility] Tash Johnson MD [phone] [address] [place] [address] Social History Tobacco Use Types Packs/Day Years [...] Procedure Name Priority Date/Time Associated Diagnosis Comme [facility] SURGICAL PATHOLOGY Routine 09/25/2013 9:29 EDT [...] ? WALTER OZUNA ? Accession #: ? [id number] ? : ? 1960 (Age: 52) ??F [...] Document reviewed and electronically signed by: NANDINI LINDSYA MD Report ??Date: 10/01/2013 15:47 By the [...] Organization Address City/State/ZIP Code Phon e Number [facility] [address] [place] [address] SERVICES [facility] [address] [place] [address] documented in this encounter Visit Diagnoses Not on filedocumented in this encounter Care Teams Agricultural Services Director Relationship Specialty Start Date End Date None, Provider PCP - General 08/25/10 06/17/20 documented as of this encounter
--- OUTSIDE RECORDS SUMMARY | 2022-01-21 00:20 | XMS_ITS | Encounter Summary ---
:1960 Author Organization [facility] Address [address] [place] [address] Care Team Providers Name Role Phone None, Provider Primary Care Provider Unavailable Reason for Visit Reason Comments New Patient Visit RASH ON RIGHT LEG Encounter Details Date Type Department Care Team Description 09/09/2010 Office Visit [facility] Bee Goldberg Nodu le (Primary Dx); Dermatology - [facility] Xeroderma [address] [place] [address] [facility] [address] [place] [address] (Wo rk) Social History Tobacco [...] encounter Progress Notes Donald Cool - 09/09/2010 6858 EDT DONALD COOL MD Bee Goldberg PA - 09/09/2010 1014 EDT Images from the original note were not included. PROBLEM: RASH SUBJECTIVE: Patient presents today for evaluation of a rash on the right sheldon. Present for: several years Itchy? Yes: (extremely) Painful? No Evaluated by other provider? 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 showed lichenoid interface changes (I reviewed the [...] BIOPSY PROCEDURE NOTE PATIENT INFORMATION: Racquel Belle [id number] 1960 DATE OF PROCEDURE: 09/09/2010 SURGEON: EMILIE hCavez QUILTING SUPERVISOR: PROCEDURE NOTE Specimen A Procedure: Punch Biopsy [...] encounter Miscellaneous Notes Scanned Note-Null - Mario, Field Clinical Engineer - 09/14/2010 1353 EDT documented in this encounter Plan of Treatment Scheduled Orders Name Type Priority Associated Diagnoses Order S chedule SURGICAL PATHOLOGY- ORDER Pathology Routine Nodule Or dered: 09/09/2010 ONLY documented as of this encounter Visit Diagnoses Diagnosis Nodule - Primary Localized superficial swelling, mass, or lump 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
--- OUTSIDE RECORDS SUMMARY | 2022-01-21 00:20 | XMS_ITS | Encounter Summary ---
:1960 Author Organization [facility] Address [address] [place] [address] Care Team Providers Name Role Phone None, Provider Primary Care Provider Unavailable Encounter Details Date Type Department Care Team Description 11/12/2018 Results Only [facility] Herrera Luna MD [phone] [address] [place] [address] Social History Tobacco Use Types Packs/Day [...] 22:57 EDT) Pathology Report: SURGICAL PATHOLOGY REPORT [facility] Reports generated via electronic interface conta in original data; CENTER LABORATORY however they are lacking the format of the original re port. SERVICES Caution should be taken when reading/interpreting unfo rmatted reports. Name: ? WALTER OZUNA ? Accession #: ? [id number] ? : ? 1960 (Age: 57 ) ??F ? Collect Date: ? 11/12/2018 ? Location: ? [facility] ? Receive Date: ? 11/13/19 19 ? Provider: HERRERA LUNA MD Copy to: CHANDRAKANT PINEDA MD ? Final Pathologic Diagnosis: ENDOCERVIX, CURETTINGS: - Tissue insufficient for diagnosis. See Comment. Comment: Deeper sections have been examined. The previous Pap test ([id number]) has been reviewed and the diagnosis of [...] Organization Address City/State/ZIP Code Phon e Number [facility] [address] [place] [address] SERVICES documented in this encounter Visit Diagnoses Not on filedocumented in this encounter Care Teams Spline Rolling Machine Job Setter Relationship Specialty Start Date End Date None, Provider PCP - General 08/25/10 06/17/20 documented as of this encounter
--- OUTSIDE RECORDS SUMMARY | 2022-01-21 00:20 | XMS_ITS | Encounter Summary ---
:1960 Author Organization [facility] Address [address] [place] [address] Care Team Providers Name Role Phone Unavailable Primary Care Provider Unavailable Encounter Details Date Type Department Care Team Description 09/06/2006 Results Only [facility] - Sonja Wright, Chr istopher, conversion DO [address] [facility] [address] [facility] KAIA BUENROSTRO [address] [place], [place] [address] [place] [address] (Wo rk) Social History Tobacco Use Types Packs/Day Years Used Date Never Assessed Sex Assigned at Date Recorded Not on file documented as of this encounter Plan of Treatment Not on filedocumented as of this encounter Procedures Procedure Name Priority Date/Time Associated Diagnosis Comme [facility] SURGICAL PATHOLOGY Routine 09/06/2006 0:00 EDT [...] ? WALTER OZUNA ? Accession #: ? [id number] ? : ? 1960 (Age: 45) ??F [...] lichenoid interface dermatitis are not excluded. (Dr. Mejias)/[facility] Microscopic Description: ? The sections show skin with hyperkeratosis, are as of hypergranulosis, epidermal hyperplasia, and basal keratinocytic vacuola r interface changes associated with a lichenoid lymphohistiocytic inflamma tory infiltrate. (Dr. Mejias)/[facility] Document reviewed and electronically signed by: Bernabe [...] intact in one mirna sette. (Jayce Zelaya MD)/[facility] End of Report Specimen Performing Organization Address City/State/ZIP Code Phon e Number [facility] [address] [place] [address] SERVICES [facility] [address] [place] [address] documented in this encounter Visit Diagnoses Not on filedocumented in this encounter
--- OUTSIDE RECORDS SUMMARY | 2022-01-21 00:20 | XMS_ITS | Clinical Summary ---
:1960 Author Organization [facility] Address [address] [place] [address] Care Team Providers Name Role Phone Odilon Russ MD Primary Care Provider Allergies No known active allergies Medications Medication Sig Dispensed Refills Start Date End Date Status clobetasol (TEMOVATE) Apply topically. 45 g 0 09/09/2010 Active 0.05 % ointment Apply daily to itchy bumps on right leg Active Problems Problem Noted Date Skin nodule 09/09/2010 Encounters Date Type Specialty Care Team Description 01/20/2022 Lab Requisition Clinical Laboratory Rachele Taylor nter for other general examina tion 12/29/2021 Lab Requisition Clinical Laboratory Rachele Taylor nter for other general examina tion from Last 3 Months Social History Tobacco Use Types Packs/Day Years [...] Recorded Not on file Plan of Treatment Health Maintenance Due Date Last Done Comments Hepatitis C Screen 1960 COVID-19 Vaccine (#1) 06/03/1962 Procedures Procedure Name Priority Date/Time Associated Comments [...] are in RISK TYPES the results section. from Last 3 Months Results PAP TEST (12/28/2021 9:40 EDT) Specimens A. Cervix and/or [facility] Endocervix , ThinPrep CENTER Imaging System with LABORATORY Manual Evaluation SERVICES Specimen Adequacy Satisfactory for [facility] Evaluation - CENTER transformation zone LABORATORY component present SERVICES General Negative for [facility] Categorization intraepithelial SKANEATELES lesion or malignancy LABORATORY SERVICES Descriptive Reactive cellular [facility] Diagnosis changes associated CENTER with inflammation LABORATORY present (includes SERVICES repair). Attestation By the signature below, the attending physician certifies that they have personally conducted a gross and/or microscopic [facility] Electronically examination of the described specimens and rendered or confirmed the above diagnosis. CENTER signed by MAURICE Colon MD on SERVICES 01/13/2022 at 14 23 Clinical History See below [facility] LABORATORY SERVICES HPV The result for the Human Pap illomavirus (HPV) Detection-High Risk Types is Positive . E6 OR E7 mRNA from one or more types of HPV types 16,18,31,33,35,39,45,51,52,56,58,59,66, and 68 is detected by [place] [facility] scription mediated amplifica tion. High and intermediate risk HPV types are associated with most squamous intraepithelial lesions and cervical cancers. Testing was performed on specimen [id number] and CENTER was resulted on 01/08/2022 1116 EDT by BABITA, LAB INSTRUMENT RESULTS IN LABORATORY SERVICES Genotyping 16 & The results for the HPV Radha types 16 and 18/45 are Negative for the HPV16 RNA and Negative for the HPV18/45 RNA (HPV18/45). Testing was performed on specimen [id number] and was resulted on 01/13/2022 1420 EDT by BABITA, LAB INSTRUMENT RESULTS IN [facility] 18/45 CENTER LABORATORY SERVICES Performing Lab [facility] LAB [facility] LABORAT[facility] SERVICES Scanned Images [facility] SERVICES Specimen Pap Test - Cervix and/or Endocervix Performing Organization Address City/State/ZIP Code Phon e Number [facility] [address] [place] [address] SERVICES HPV GENOTYPES 16 AND 18/45 (12/28/2021 9:40 EDT) Pathologist Sig nature HPV16 RNA Negative Negative [facility] SERVICES HPV18/45 RNA Negative Negative [facility] (HPV18/45) LABORATORY SERVICES Specimen Pap Test - Cervix and/or Endocervix Performing Organization Address City/State/ZIP Code Phon e Number [facility] [address] [place] [address] SERVICES (ABNORMAL) HUMAN PAPILLOMAVIRUS (HPV) DETECTION-HIGH RISK TYPES (12/28/2021 9:40 EDT) Human Papillomavirus Positive (A)Comment: Negative [facility] (HPV) Detection-High E6 OR E7 mRNA from CENTER Types one or more types of LABORATORY HPV types SERVICES 16,18,31,33,35,39,45, 51,52,56,58,59,66, and 68 is detected by security patrol driver mediated amplification. High and intermediate risk HPV types are associated with most squamous intraepithelial lesions and cervical cancers. Specimen Pap Test - Cervix and/or Endocervix Performing Organization Address City/State/ZIP Code Phon e Number [facility] [address] [place] [address] SERVICES from Last 3 Months Insurance Payer Benefit Plan Subscriber ID Effective Phone Address Typ e / Group Dates [email or web address] HE[employer] PLANS [id number] 2020-Prese [phone] [address] [employer] [address] [address] [phone] (Work) Racquel Belle Personal/Family Self [address] (Home) [place], [place] [phone] (Work) Racquel Belle Personal/Family Self [address] (Home) [place], [place] [phone] (Work) Racquel Belle Personal/Family Self 1960 [address] (Home) [place], [place] [phone] (Work) Racquel Belle Personal/Family Self 1960 [address] (Home) [place], [place] [phone] (Work) Care Teams Corporate Intern Relationship Specialty Start Date End Date Odilon Russ MD PCP - General 06/18/[address] [place] [address] [address] [place], [place] [id number]
--- OUTSIDE RECORDS SUMMARY | 2022-01-21 00:20 | XMS_ITS | Encounter Summary ---
:1960 Author Organization [facility] Address [address] [place] [address] Care Team Providers Name Role Phone Unavailable Primary Care Provider Unavailable Encounter Details Date Type Department Care Team Description 02/19/2001 Results Only [facility] - Berenice Mayer MD conversion [address] [facility] [address] [place], [place] [id number] [place] [id number] [phone] Social History Tobacco Use Types Packs/Day Years Used Date Never Assessed Sex Assigned at Date Recorded Not on file documented as of this encounter Plan of Treatment Not on filedocumented as of this encounter Procedures Procedure Name Priority Date/Time Associated Diagnosis Comme [facility] SURGICAL PATHOLOGY Routine 02/19/2001 0:00 EDT [...] ? WALTER OZUNA ? Accession #: ? [id number] ? : ? 1960 (Age: 40) ??F [...] x 1.3 x 1.2 cm. ??One medical claims representative section is submit adrian as (A). Received in formalin labelled Ozuna and 2- Left tonsil is an ovoid portion of sun-pink, focally hyperemic soft tiss ue which measures 2.5 x 1.9 x 1.2 cm. ??One medical claims representative section is submitte d as (B). ??(E. Jaime)/[facility] End of Report Specimen Performing Organization Address City/State/ZIP Code Phon e Number [facility] [address] [place] [address] SERVICES [facility] [address] [place] [address] documented in this encounter Visit Diagnoses Not on filedocumented in this encounter
--- OUTSIDE RECORDS SUMMARY | 2022-01-21 00:20 | XMS_ITS | Encounter Summary ---
:1960 Author Organization [facility] Address [address] [place] [address] Care Team Providers Name Role Phone Odilon Russ MD Primary Care Provider Encounter Details Date Type Department Care Team Description 06/18/2020 Lab Requisition [facility] Rachele Taylor Encounter for other Pathology & [address] [place] [address] general examination Laboratory Medicine [facility] [phone] [place] [address] [place] [address] (Work) [phone] Social History Tobacco Use Types Packs/Day Years [...] squamous metapla kwabena. Attestation By the signature [facility] Electronica lly below, the attending CENTER signed by physician Roel certifies LABORATORY Stas Mays MD on that they have 1) SERVICES 06/19/2020 at 1004 personally conducted a gross and/or microscopic examination of the described specimen(s), and/or personally interpreted the results of laboratory testing of the described specimen(s), and 2) personally rendered or confirmed the above diagnosis. Clinical History +HR HPV [facility] LABOR[facility]ORY SERVICES Gross Description A. [facility] Received in formalin jacklyn d with [...] B1. [address]IL[address](ASCP) 06/18/2020 18:24 Performing Lab [facility] LABORATORY SERVICES Scanned Images [facility] LABOR[facility] SERVICES Specimen Tissue - Entire endocervix (body structu re) Tissue specimen (specimen) - Entire endo cervix (body structure) Performing Organization Address City/State/ZIP Code Phon e Number [facility] [address] [place] [address] SERVICES documented in this encounter Visit Diagnoses Diagnosis Encounter for other general examination documented in this encounter Care Teams Solid Waste Facility Operator Relationship Specialty Start Date End Date Odilon Russ MD PCP - General 06/18/[address] [place] [address] [address] [place], [place] [id number] documented as of this encounter
--- OUTSIDE RECORDS SUMMARY | 2022-01-21 00:20 | XMS_ITS | Encounter Summary ---
:1960 Author Organization [facility] Address [address] [place] [address] Care Team Providers Name Role Phone Odilon Russ MD Primary Care Provider Encounter Details Date Type Department Care Team Description 01/20/2022 Lab Requisition [facility] Rachele Taylor Encounter for other Pathology & [address] [place] [address] examination Laboratory Medicine [facility] [phone] [place] [address] [place] [address] (Work) [phone] Social History Tobacco Use Types Packs/Day Years [...] as of this encounter Plan of Treatment Pending Results Name Type Priority Associated Diagnoses Date/Ti nc SURGICAL PATHOLOGY Pathology Today Encounter for other 14:30 EDT general examination documented as of this encounter Visit Diagnoses Diagnosis Encounter for other general examination documented in this encounter Care Teams Cocktail Waitress Relationship Specialty Start Date End Date Odilon Russ MD PCP - General 06/18/[address] [place] [address] [place], [place] [id number] documented as of this encounter
--- OUTSIDE RECORDS SUMMARY | 2022-01-21 00:20 | XMS_ITS | Encounter Summary ---
:1960 Author Organization [facility] Address [address] [place] [address] Care Team Providers Name Role Phone None, Provider Primary Care Provider Unavailable Encounter Details Date Type Department Care Team Description 11/27/2018 Results Only [facility] Herrera Luna MD [phone] [address] [place] [address] Social History Tobacco Use Types Packs/Day [...] 23:35 EDT) Pathology Report: SURGICAL PATHOLOGY REPORT [facility] Reports generated via electronic interface conta in original data; CENTER LABORATORY however they are lacking the format of the original re port. SERVICES Caution should be taken when reading/interpreting unfo rmatted reports. Name: ? WALTER OZUNA ? Accession #: ? [id number] ? : ? 1960 (Age: 57 ) ??F ? Collect Date: ? 11/27/2018 ? Location: ? [facility] ? Receive Date: ? 11/28/19 19 ? Provider: HERRERA LUNA MD Copy to: LILIAN PINEDA MD ? Final Pathologic Diagnosis: ENDOCERVIX, CURETTAGE: - Rare benign endocervical cells; insufficient for fur ther diagnosis. See comment. Comment: We have reviewed the prior P ap test ([id number]) and agree with the diagnosis of low [...] Organization Address City/State/ZIP Code Phon e Number [facility] [address] [place] [address] SERVICES documented in this encounter Visit Diagnoses Not on filedocumented in this encounter Care Teams Manager Bank Relationship Specialty Start Date End Date None, Provider PCP - General 08/25/10 06/17/20 documented as of this encounter
--- NOTE | 2022-01-21 07:45 | DI.MAMMO_ITS ---
Exam(s) MAMMO SCREENING EXAM: MAMMO SCREENING CLINICAL HISTORY: screening,z12.39 TECHNIQUE: Mammograms were interpreted according to the usual protocol including computer analysis w [employer] CAD system, tomosynthesis and C-view imaging. COMPARISON: 2017 through 2020 FINDINGS: The breasts are composed of heterogeneously dense fibroglandular densities, Breast Density category C . No suspicious masses or suspicious microcalcifications are seen. No skin thickening or abnormal axillary lymph nodes are seen. There has been no significant change from prior exams. IMPRESSION: BI-RADS Category 1, Negative mammogram. Yearly screening mammography is recommended. Breast Density Category C, heterogeneously Dense. The mammogram demonstrates the patient's breast tissue is dense. Dense breast tissue is very common a nd is not abnormal but dense breast tissue can make it harder to find cancer on a mammogram. Also, de nse breast tissue may increase breast cancer risk. This information about the result of the mammogram report was provided to the patient to raise their awareness. Use this report when you speak with the patient about their risks for breast cancer, which includes their family history. At that time, you may recommend additional screening tests (Ultrasound or MRI) as they might be useful based on their r isk. A negative radiographic report should not delay biopsy if a dominant or clinically suspicious mass is present. Up to ten percent of cancers are not identified on mammography. A negative report may reinforce clinical impression. Adenosis and dense breasts may obscure an underlying neoplasm. False positive reports average 6 to 10%.
== END ==
PROVIDERS: PCP Student in an Organized Health Care Education/Training Program; Visit Provider Obstetrics & Gynecology
DX: Z12.31 Encounter for screening mammogram for malignant neoplasm of breast (principal); R92.8 Other abnormal and inconclusive findings on diagnostic imaging of breast
CPT/HCPCS: 77063; 77067

== ENCOUNTER 2022-03-29 06:17 | Day surgery (SDC) | payer OTHER, SELFPAY ==
--- NOTE | 2022-03-28 20:23 | PDOC.DSDIS_ITS ---
Date of service: 03/29/22 Time of Service: 08:28 Discharge Plan Disposition Patient Disposition: HOME Condition: Good Condition: Good Discharge Details Reason For Visit: Routine health maintanence screening colonoscopy Attending Provider: Sadi Strong Primary Care Provider: Delia Amin Home Meds and New Rx's Prescriptions: Continued ibuprofen 600 mg tablet 600 mg PO Q8H PRN (Reason: pain) Qty: 30 0RF Rx Instructions: Triad 2/day x 3 days valacyclovir 1,000 MG tablet 1,000 mg PO Q12H PRN Qty: 6 6RF Rx Instructions: 1 tab PO every 12 hours for 3 days Discharge Instructions Additional Instructions: 1. If tolerated, consume a soft, low fiber diet for 1-2 days. 2[address] Do not drive, drink alcohol, operate machinery, make critical decisions, or do activities that require coordination or balance for 24 hours. 3. Because air was put into your colon during the procedure, expelling air from your rectum (passing gas or farting) is normal. 4. You may not have a bowel movement for 1-3 days because of the colonoscopy p rep. This is normal. 5. Go directly to the emergency room if you notice any of the following: Develop chills (warm to touch), or if you have a thermometer and your temperature is above 101 Difficulty breathing or difficultly swallowing Persistent vomiting Severe abdominal pain, other than gas cramps Severe chest pain Black, tarry stools Any bleeding ? exceeding one tablespoon 6. Call your physician if the site where your intravenous was started becomes red, swollen, painful, and warm to touch. 7. Your physician has reviewed your pre-procedure medications. Please continue to take those medications as previously ordered. You will be given specific information/education regarding any changes to your medications before leaving. Activity:: Activity as Tolerated Activity:: Activity as Tolerated Diet:: As Tolerated DS: Diagnosis Discharge Diagnosis (1) History of colonoscopy: Asessment and Plan: Another normal colonoscopy, recommended follow-up will be 10 years
--- NOTE | 2022-03-28 20:26 | W.COLOREPORT ---
Date of service: 03/29/22 Time of Service: : Colonoscopy Report Date of procedure: 03/29/22 Pre-op diagnosis general: Routine health maintenance screening colonoscopy Post-op diagnosis procedure note: same Procedure: Screening colonoscopy Surgeon: Sadi Strong Anesthesia Type: General:No Airway Estimated blood loss (mL): 0 Pathology: none sent Complications: None Disposition: same day Indications: Racquel is 61 years old and here for her second screening colonoscopy as part of routine health maintenance Prep: Miralax/Dulcolax Procedure Start Time: 08:00 Procedure End Time: 08:17 Retraction Time: 14 Findings: Normal colonoscopy Procedure Description: After the induction of monitored anesthetic care, and with the patient in left lateral decubitus position, I began by performing an external anorectal exam.? Perineum and skin were normal, as was the anal verge.? There was mild evidence of external hemorrhoids in the form of fibrosed skin tags.? Next, I performed a digital rectal exam.? I did not appreciate any abnormal findings.? Next, I advanced a colonoscope into the rectal vault.? I performed retroflexion.? This was normal.? Using insufflation, I then advanced the colonoscope beyond the rectal folds and into the sigmoid colon before advancing towards the cecum.? The quality of the prep was excellent.? The scope was noted to be in the cecum by identification of the ileocecal valve and appendiceal orifice.? I then began withdrawing the colonoscope using repeated irrigation as necessary for full evaluation of the colonic mucosa. ?Once the scope was withdrawn to the level of the rectum, great care was taken to examine portions of the rectal folds.? Finally, the scope was withdrawn and the patient was brought to the same-day surgery recovery unit as the anesthetic wore off. ?The findings and instructions were shared with the patient prior to discharge.
[2022-03-29 06:43] VITALS: BP 147/68; PULSE 67; RESP 16; TEMP 36.2; O2SAT 97
--- NOTE | 2022-03-29 06:53 | W.ANESPRE ---
General Info Date of Service Date Performed: 03/29/22 Height: 5 ft 2 in Weight: 67.1 kg Body Mass Index (BMI): 27.0 Surgical Procedure: Operation Date: 03/29/22 07:35 Proposed Procedure Side Surgeon jason [place] MD Meds Allergies and Home Medications Allergies Allergy/AdvReac Type Severity Reaction Status Date / Time clindamycin Allergy Severe Rash Verified 03/29/22 06:42 pineapple [Pineapple] Allergy Severe Anaphylaxsi Verified 03/29/22 06:42 s strawberry [[place]] Allergy Severe Anaphylaxsi Verified 03/29/22 06:42 s Home Medication Medication Instructions Recorded valacyclovir 1 gram tablet 1,000 mg PO Q12H PRN #6 tabs 06/01/17 ibuprofen 600 mg tablet 600 mg PO Q8H PRN pain #30 tabs 10/21/21 Current Visit Medications: Current Medications Generic Name Dose Route Start Last Admin Trade Name Freq PRN Reason Stop Dose Admin Hyoscyamine Sulfate 0.125 mg 03/28/22 20:26 Hyoscyamine 0.125 Mg Sl/Oral/Chew SL PRN PRN Ringer's Solution 1,000 mls @ 80 mls/hr 03/29/22 06:00 IV 03/29/22 23:59 INFUSION TETO IV Miscellaneous Supplies 1 each 03/29/22 06:00 Iv Access IV 03/29/22 23:59 DIRECTED TETO Ondansetron HCl 4 mg 03/28/22 20:26 Ondansetron 4 Mg/2 Ml Vial IVP Q4H PRN PRN Nausea / Vomiting Sodium Chloride 0 ml 03/29/22 06:00 Normal Saline Flush 10 Ml Syr IV 03/29/22 23:59 PRN PRN Sodium Chloride 0 ml 03/29/22 06:00 Normal Saline 10 Ml Vial IJ 03/29/22 23:59 DIRECTED PRN Sterile Water 0 ml 03/29/22 06:00 Water,Injection,Sterile 10 Ml Vial IJ 03/29/22 23:59 DIRECTED PRN PFSH Active Problems Active Problems: Problem Status Onset Code LGSIL (low grade squamous intraepithelial dysplasia) Abnormal mammogram R92.8 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 Family history of lymphoma SIster @ 62 (2019) of Antonieta Jacobsen Surgical History Surgical History History of colonoscopy History of tonsillectomy Tobacco Smoking/Tobacco Use Status: Never Alcohol Alcohol Intake: current Alcohol intake frequency: a few times a month Substance Use Substance use: Never Substance use type: does not use Vital Signs and Lab Results Vital Signs Most Recent Vital Signs in EMR: Most Recent Vital Signs Temp Pulse Resp BP Pulse Ox 36.2 C L 67 16 147/68 H 97 03/29/22 06:43 03/29/22 06:43 03/29/22 06:43 03/29/22 06:43 03/29/22 06:43 Lab Results Blood Type / Crossmatch: No Data to Display Complete Blood Count: No Data to Display Complete Metabolic Panel: No Data to Display Liver Function Panel: No Data to Display Coagulation Panel: No Data to Display Cardiac Panel: No Data to Display Arterial Blood Gas: No Data to Display Venous Blood Gas: No Data to Display Pancreas Panel: No Data to Display Thyroid Panel: No Data to Display Infectious Disease: No Data to Display Blood Cultures: No Data to Display Toxicology Panel: No Data to Display Anesthesia Assessment and Plan Anesthesia History Personal History: No History of Anesthesia Complications Family History: Other Exercise Tolerance Exercise Tolerance: Metabolic Equivalents>4 Pertinent Negatives Pertinent Negatives: No Symptoms of GERD, No Major Cardiovascular Symptoms or Complaints and No Major Pulmonary Symptoms or Complaints Cardiac & Pulmonary Exam Cardiac Exam: Normal S1/S2 Heart Sounds Pulmonary Exam: Clear Bilateral Breath Sounds Implantable Cardiac Device Does patient have a Pacemaker or an ICD?: No Airway Exam Known Difficult Airway: No Mallampati Class: 1 Mouth Opening: Normal (> 3cm) Thyromental Distance: Greater than 3 cm Neck Range of Motion: Full ROM Neck Circumference: Normal Teeth Condition: Normal Dentition ASA Classification ASA Score: ASA 2 Emergency Case?: No NPO Status NPO Status: NPO Clears >2 hours, Solids >8 hours Anesthesia Plan Resuscitation Status: Full Code Anesthesia Technique: General Anesthesia Airway Planned: Natural Airway Monitors Used: Standard Monitors
[2022-03-29] MEDS: Lactated Ringers 1,000 ML 80 ML IV (07:05)
[2022-03-29 07:08] VITALS: BMI 27.0
[2022-03-29 08:25] VITALS: BP 116/55; PULSE 57; RESP 16; TEMP 36; O2SAT 94
[2022-03-29 09:00] VITALS: BP 133/66; PULSE 55; RESP 16; TEMP 36.2; O2SAT 95
--- NOTE | 2022-03-29 09:25 | W.ANESPOSTOP ---
Postoperative Evaluation Date, Time and Location Date Performed: 03/29/22 Time Performed: 08:30 Patient Location: Day Surgery Unit Vital Signs Most Recent Imported Vital Signs: Most Recent Vital Signs Temp Pulse Resp BP Pulse Ox 36 C L 57 L 16 116/55 L 94 03/29/22 08:25 03/29/22 08:25 03/29/22 08:25 03/29/22 08:25 03/29/22 08:25 Pain Score Most Recent Pain Score: Most Recent Pain Score Pain Level 0 03/29/22 08:25 Assessment Mental Status: Awake (Alert & Oriented to Patient Baseline) Airway and Respiratory Function: Patent airway with normal (patient baseline) respiratory exam Cardiovascular Function: Hemodynamically Stable Hydration Status: Adequately Hydrated Nausea & Vomiting: No Nausea or Vomiting Pain: Pt. Denies Any Pain Peripheral Nerve Block: Patient did not receive a nerve block
== END 2022-03-29 09:15 | disposition home or self-care (01) ==
PROVIDERS: PCP Student in an Organized Health Care Education/Training Program; Visit Provider Surgery
PROC: 0DJD8ZZ Inspection of Lower Intestinal Tract, Via Natural or Artificial Opening Endoscopic (ICD-10-PCS; CPT 45378; principal; 2022-03-29 07:30)
DX: Z12.11 Encounter for screening for malignant neoplasm of colon (principal)
CPT/HCPCS: 45378

== ENCOUNTER 2022-06-03 08:55 | Outpatient (CLI) | payer OTHER, SELFPAY ==
--- NOTE | 2022-06-03 08:45 | DI.RAD_ITS ---
Exam(s) XR WRIST RT COMPL NAVICULAR EXAM: XR WRIST RT COMPL NAVICULAR CLINICAL HISTORY: right hand pain. TECHNIQUE: 2D digital imaging was performed. COMPARISON: No exams were available for comparison FINDINGS: Four views: There is no evidence of fracture, dislocation nor significant ulnar variance. Scaphoid unremarkable. Scapholunate distance normal. No osseous lesions. No erosions. No degenerative change evident, i ncluding the 1st carpometacarpal joint. IMPRESSION: No significant osseous findings in the wrist. DATA REPOSITORY: RADIATION DOSE DELIVERED:
== END 2022-06-03 08:56 | disposition home or self-care (01) ==
LOC: DIORS 08:56
PROVIDERS: PCP Student in an Organized Health Care Education/Training Program; Referring Provider Student in an Organized Health Care Education/Training Program; Visit Provider Physician Assistant
DX: M79.641 Pain in right hand (principal)
CPT/HCPCS: 73110

== ENCOUNTER 2025-02-14 18:24 | Outpatient (REF) | payer OTHER, SELFPAY ==
[2025-02-14 18:55] LABS: ALT 92 U/L (14-59); AST 47 U/L (15-37); Albumin 3.6 g/dL (3.4-5.0); Alkaline Phosphatase 67 U/L (46-116); Anion Gap 8.6 mmol/L (3-11); BUN 22 mg/dL (7-18); Bilirubin, Total 0.3 mg/dL (0.2-1.0); CO2 27.4 mmol/L (21.0-32.0); Calcium 8.8 mg/dL (8.5-10.1); Calculated LDL 108 mg/dL (<100); Chloride 105 mmol/L (98-107); Cholesterol 202 mg/dL (<200); Estimated GFR 100.80 (mL/min/1.73m2); Glucose 103 mg/dL (74-106); HDL Cholesterol 43 mg/dL (>or=50); Magnesium 1.8 mg/dL (1.8-2.4); Potassium 4.1 mmol/L (3.5-5.1); Sodium 141 mmol/L (136-145); Total Protein 7.4 g/dL (6.4-8.2); Triglyceride 255 mg/dL (<150)
== END 2025-02-14 18:25 | disposition home or self-care (01) ==
LOC: LBN 18:24
DX: R74.01 Elevation of levels of liver transaminase levels (principal); Z00.00 Encounter for general adult medical examination without abnormal findings; E78.00 Pure hypercholesterolemia, unspecified; R25.2 Cramp and spasm
CPT/HCPCS: 80053; 80061; 83735

== ENCOUNTER 2025-04-10 11:07 | Outpatient (CLI) | payer OTHER, SELFPAY ==
[2025-04-10 11:39] LABS: Abs Immature Grans 0.02 10^3/uL (0.0-0.06); HCT 40.1 % (36.0-46.0); HGB 13.3 g/dL (11.2-15.7); Immature Grans % 0.4 %; MCH 30.5 pg (27.0-33.0); MCHC 33.2 % (32.0-36.0); MCV 92 fL (80-95); MPV 10.3 fL (8.0-11.0); Platelet Count 174 10^3/uL (130-400); RBC 4.36 10^6/uL (3.93-5.22); RDW 11.9 % (11.7-14.6); RDW-SD 40.7 fL; WBC 5.66 10^3/uL (4.4-10.8)
[2025-04-10 12:32] LABS: Iron 90 ug/dL (50-170); Total Iron Binding Capacity 317 ug/dL (250-425); Transferrin Sat 28 % (15-50)
[2025-04-11 09:50] LABS: HBs Antibody, Qual Negative (See Note); HBs Antibody, Quant 7.7 mIU/mL (See Note); Hepatitis C Ab w Rflx HCV PCR Negative (Negative)
== END 2025-04-10 11:08 | disposition home or self-care (01) ==
LOC: LBO 11:08
DX: R74.01 Elevation of levels of liver transaminase levels (principal)
CPT/HCPCS: 36415; 86704; 86706; 86803; 87340; 83540; 83550; 85025